=== PATIENT | female | born 1955 | race Caucasian/White ===

== ENCOUNTER → 2016-12-31 | Outpatient (CLI) | payer OTHER ==
[~2016-12-31] MED LIST: ASPI-461 PO; ATV/1 PO; BUDESUS; CALCIUM 100 MG PO; IBUP-1450 PO; LISI-461 PO; LORA10TA51 PO; MISCCAP80 PO; MULTTAB58 PO; PIRB200A INH; RIZA10TA18 PO; SNG10 PO; TRIA0.1C20 TOP
--- NOTE | 2016-12-31 14:35 | MAMMOGRAPHY REPORT ---
BILATERAL DIGITAL SCREENING MAMMOGRAM WITH CAD: 12/31/2016 TECHNIQUE: Current study was also evaluated with a Computer Aided Detection (CAD) system. Bilateral CC and MLO views were obtained. COMPARISON: Comparison is made to exams dated: 12/31/2015 mammogram, 12/25/2014 mammogram, 12/21/2013 m ammogram, 12/15/2012 mammogram, 06/30/2012 mammogram, and 12/18/2011 mammogram - [facility]. BREAST COMPOSITION: There are scattered areas of fibroglandular density in both breasts. FINDINGS: No suspicious masses, calcifications, or areas of architectural distortion are noted in ei ther breast. There has been no significant interval change compared to prior exams. Bilateral nodula r asymmetries and bilateral benign-appearing calcifications are not significantly changed. A biopsy marker clip is again noted in the left medial breast. IMPRESSION: ACR BI-RADS CATEGORY 2: BENIGN There is no mammographic evidence of malignancy. A 1 year screening mammogram is recommended. The pa tient will receive written notification of the results. Approximately 10% of breast cancers are not detected with mammography. A negative mammographic report should not delay biopsy if a clinically suggestive mass is present. Maxine Buchanan M.D. /:12/31/2016 10:26:57 Can Coverer: Siria VAZQUEZ([facility])([place])(MARILIA), [facility] letter sent: Normal 1/2 BI-RADS Code: ACR BI-RADS Category 2: Benign
== END | disposition home or self-care (01) ==
LOC: C.MAMM 09:10
PROVIDERS: ATTEND Family Medicine
DX: Z12.31 Encounter for screening mammogram for malignant neoplasm of breast (principal)

== ENCOUNTER → 2017-10-27 | Outpatient (CLI) | payer OTHER ==
--- NOTE | 2017-10-27 17:25 | DIAGNOSTIC IMAGING REPORT ---
R TIBIA/FIBULA 2 VIEWS ROUTINE CLINICAL HISTORY: Right lower leg pain. COMPARISON: None FINDINGS: No fracture or osseous lesion is identified within the right tibia or fibula. There is no radiographic evidence for a stress fracture. Talar dome is intact. There is mild plantar and posterior calcaneal spurring. IMPRESSION: No osseous abnormality of the right tibia or fibula. Electronically signed by: Marty Demarco M.D. 10/27/2017 5:24 PM Dictated Date/Time: 10/27/2017 5:23 PM
== END | disposition home or self-care (01) ==
LOC: C.RAD 17:03
PROVIDERS: ATTEND Internal Medicine
DX: M25.561 Pain in right knee (principal)

== ENCOUNTER → 2018-01-25 | Outpatient (CLI) | payer OTHER ==
--- NOTE | 2018-01-25 16:19 | MAMMOGRAPHY REPORT ---
BILATERAL DIGITAL SCREENING MAMMOGRAM TOMOSYNTHESIS WITH CAD: 01/25/2018 CLINICAL HISTORY: Routine screening. Patient has no complaints. TECHNIQUE: The study was acquired using full field digital technology and interpreted from soft copy. Breast tomosynthesis in addition to standard 2D mammography was performed. Current study was also ev aluated with a Computer Aided Detection (CAD) system. COMPARISON: Comparison is made to exams dated: 12/31/2016 mammogram, 12/31/2015 mammogram, 12/25/2014 m ammogram, 12/21/2013 mammogram, 12/15/2012 mammogram, and 06/30/2012 mammogram - [facility]. BREAST COMPOSITION: There are scattered areas of fibroglandular density in both breasts. FINDINGS: There is a 6 mm focal asymmetry in the 12:00 middle one third of the right breast, for whic h additional spot compression tomosynthesis views and possible ultrasound are recommended. A possibl e grouping of faint microcalcifications in the lateral, middle one third of the left breast best seen on the CC view, warranting additional spot magnification views. There are stable postbiopsy changes in the lower inner left breast, with boaz-shaped biopsy marker cli p in place. A few other scattered benign-appearing calcifications. No other suspicious mass, archite ctural distortion or cluster of microcalcifications is seen. IMPRESSION: ACR BI-RADS CATEGORY 0: INCOMPLETE EVALUATION: NEED ADDITIONAL IMAGING EVALUATION The 6 mm focal asymmetry in the 12:00 right breast and possible faint grouped calcifications in the l ateral left breast need additional evaluation. The patient will be called to schedule an appointment. Some breast cancers are not detected with mammography. A negative mammographic report should not jeff y biopsy if a clinically suggestive mass is present. Martha Calvert M.D. ay/:01/25/2018 08:54:05 Brine Well Operator: RT Natalio(R)(M)(BD), [facility] letter sent: Addl Imaging 0 BI-RADS Code: ACR BI-RADS Category 0: Incomplete Evaluation: Need Additional Imaging Evaluation
== END | disposition home or self-care (01) ==
LOC: C.MAMM 08:21
PROVIDERS: ATTEND Internal Medicine
DX: Z12.31 Encounter for screening mammogram for malignant neoplasm of breast (principal); N64.89 Other specified disorders of breast

== ENCOUNTER → 2018-02-04 | Outpatient (CLI) | payer OTHER ==
--- NOTE | 2018-02-04 14:36 | MAMMOGRAPHY REPORT ---
BILATERAL DIGITAL DIAGNOSTIC MAMMOGRAM TOMOSYNTHESIS AND TARGETED RIGHT ULTRASOUND: 02/04/2018 CLINICAL HISTORY: Callback from screening mammogram for right breast mass and left breast calcificati ons. Right Asymmetry Left calcifications. TECHNIQUE: The study was acquired using full field digital technology and interpreted from soft copy. Breast tomosynthesis in addition to standard 2D mammography was performed. Spot compression right C C and MLO 2D and tomosynthesis images and spot magnification left CC and MLO views were obtained. COMPARISON: Comparison is made to exams dated: 01/25/2018 mammogram, 12/31/2016 mammogram, 12/31/2015 m ammogram, 12/25/2014 mammogram, 12/21/2013 mammogram, and 12/15/2012 mammogram - [facility]. BREAST COMPOSITION: There are scattered areas of fibroglandular density in both breasts. FINDINGS: Spot compression views of the right breast demonstrate a persistent oval 7 mm mass which has circumsc ribed margins on the tomosynthesis images in the right 12:00 breast. Spot magnification views of the left breast demonstrate loosely grouped faint punctate benign appearing calcifications within the la teral left breast are not significantly changed compared to spot magnification views from the 2012 ex am when accounting for differences in mammographic technique; given the long-term stability and benig n morphology, the calcifications are considered benign. Targeted ultrasound was performed of the right 12:00 breast in the region of the mammographic mass. In the right 12:00 breast, 2 cm from the nipple, there is a circumscribed anechoic mass with posterio r acoustic enhancement which measures 6 x 6 x 6 mm. This corresponds with the mammographic mass and is consistent with a benign simple cyst. IMPRESSION: ACR BI-RADS CATEGORY 2: BENIGN, ULTRASOUND ACR BI-RADS CATEGORY 2: BENIGN 1. Benign 6 mm cyst in the right 12:00 breast on ultrasound, which corresponds with the mammographic mass. 2. Loosely grouped punctate benign-appearing calcifications in the left lateral breast are stable da ting back to at least the 2012 exam and considered benign given the morphology and stability. There is no mammographic or sonographic evidence of malignancy. A 1 year screening mammogram is recom mended.(02/05/2019) The patient has been verbally notified of the results. Some breast cancers are not detected with mammography. A negative mammographic report should not jeff y biopsy if a clinically suggestive mass is present. Maxine Buchanan M.D. ah/:02/04/2018 09:33:09 Crisis Therapist: RT Malinda([facility])(M), [facility]; Maxine Buchanan MD, [facility] letter sent: Normal 07/06 OVERALL STUDY BIRADS: 2 Benign
== END | disposition home or self-care (01) ==
LOC: C.MAMM 09:02
PROVIDERS: ATTEND Family Medicine
DX: N64.89 Other specified disorders of breast (principal); N60.01 Solitary cyst of right breast; R92.1 Mammographic calcification found on diagnostic imaging of breast

== ENCOUNTER 2021-04-30 21:17 | Inpatient (IN) ==
[2021-04-30 22:32] LABS: Hemoglobin 7.9 g/dL (12.0-16.0); Mean Corpuscular Hemoglobin 31.3 pg (25-34); Mean Corpuscular Hgb Conc 31.6 g/dL (32-36); Mean Corpuscular Volume 99.2 fL (80-100); Nucleated RBC # (auto) 0.06 K/uL (0-0); Nucleated RBC % (auto) 1.4 %; RDW Coefficient of Variation 21.7 % (11.5-14.5); RDW Standard Deviation 77.3 fL (36.4-46.3); Red Blood Count 2.52 M/uL (4.2-5.4); White Blood Count 4.21 K/uL (4.8-10.8)
[2021-04-30 22:34] LABS: Platelet Count 61 K/uL (130-400)
[2021-04-30 22:44] LABS: INR 1.2 (0.9-1.1); Partial Thromboplastin Ratio 0.9; Partial Thromboplastin Time 22.5 Seconds (21.0-31.0); Prothrombin Time 11.8 Seconds (9.0-12.0)
[2021-04-30 22:50] LABS: Calcium 9.6 mg/dl (8.5-10.1); Creatinine Clr Calc Pharmacy 48.3 ml/min; Est GFR (African American) 59.5 ml/min; Est GFR (Non-African American) 51.3 ml/min; Potassium 3.7 mmol/L (3.5-5.1)
[2021-04-30 22:53] LABS: Albumin Globulin Ratio 0.4 (0.9-2); Globulin 6.8 gm/dl (2.5-4.0); Total Protein 9.8 gm/dl (6.4-8.2)
[2021-04-30 22:57] LABS: Anisocytosis Present; Basophils # (auto) 0.01 K/uL (0-0.2); Basophils % (auto) 0.2 %; Eosinophils # (auto) 0.08 K/uL (0-0.5); Eosinophils % (auto) 1.9 %; Immature Granulocytes # (auto) 0.08 K/uL (0.00-0.02); Immature Granulocytes % (auto) 1.9 %; Lymphocytes # (auto) 0.14 K/uL (1.2-3.4); Lymphocytes % (auto) 3.3 %; Monocytes # (auto) 0.41 K/uL (0.11-0.59); Monocytes % (auto) 9.7 %; Neutrophils # (auto) 3.49 K/uL (1.4-6.5); Rouleaux 1+
[2021-04-30] MEDS ORDERED: SODIUM CHLORIDE 0.9% 1000ML 1,000 ML IV ONE (23:12)
--- NOTE | 2021-04-30 23:20 | Emergency Department Note ---
Impression & Plan Febrile leukopenia Admission ED Provider Note HPI: The patient is a 65-year-old female with history of Waldenstrom macroglobulinemia, currently on chemotherapy, presents the emergency department the chief complaint of a transient fever today. Patient states that she felt feverish earlier today and took her temperature at home and it was 102 Fahrenheit, she states she had some mild nausea but denies any other symptoms aside from generalized weakness She states she did receive her COVID-19 vaccinations and her booster earlier this year. She states her last session of chemotherapy was 1 week ago. On arrival to the ED the patient is hemodynamically stable, she has borderline temperature at 37.6 C, she is saturating well on room air and is otherwise in no acute distress on my initial evaluation. ROS: -General: Fever/generalized weakness *10 point review systems was conducted and is otherwise negative unless stated above *Outpatient medications and allergy history reviewed PE: General: Alert, NAD HEENT: Normocephalic, atraumatic, trachea midline Eyes: Extraocular eye movement is intact, no scleral erythema Pulmonary: Clear to auscultation bilaterally, no wheezing Cardio: Regular rate and rhythm GI: Abdomen is soft, nontender : No suprapubic tenderness MSK: No evidence of trauma or malformation of the extremities, no edema Skin: No evidence of rash Neuro: Alert, no focal deficits Psychiatric: Cooperative teletypesetter monitor: Order placed, patient is in sinus tachycardia on the monitor EKG: Time: 2205 Rhythm: Sinus tachycardia Rate: 118 Intervals: Within normal limits ST changes: No ST elevation Medical Decision Making: Patient presents the emergency department with fever measured at home to 100.2, she is immunocompromise that she is on chemotherapy for history of WaldenStrom macroglobulinemia. On arrival here to the ED the patient is hemodynamically stable, no acute distress. Blood cultures were drawn in the ED, lactic acid is normal, patient was given 1 L of IV fluid and none further secondary to hemodynamic stability. Lab work shows evidence of slight leukopenia of 4.2, anemia with hemoglobin of 7.9, platelet count of 61, consistent with the patient's history of macroglobulinemia. She denies any recent gross blood loss or melena. Given the patient's history, decision was made to start the patient on broad- spectrum antibiotics as she is leukopenic and reported a fever earlier today. Of note, her COVID-19 testing is negative. Chest x-ray shows no obvious pneumonia but possible developing infiltrate in the left lower lobe per my interpretation. Patient was covered with broad-spectrum antibiotics vancomycin and cefepime. Case was discussed with the on-call hospitalist through [facility] group and patient was admitted in stable condition. * Diagnosis: Fever and leukopenia in an immunocompromise patient * Disposition: Admission Anthony Kaur DO Emergency Medicine Past Med/Surg History Medical History (Updated 05/01/21 @ 04:55 by Anthony Kaur DO) Anemia Hx Anxiety Arthritis Asthma Diverticulitis s/p abx (?09/2020) Elevated BP without diagnosis of hypertension Gout History of genital warts Migraine Hx Obesity Pain in joint involving right lower leg Rash Surgical History H/O oral surgery History of anesthesia reaction Burning sensation across chest with oral surgery (Dr. Palacios's office/2018), no similar issues with subsequent surgeries/procedures History of bone marrow biopsy 14 years ago "inconclusive"/follows with Dr. Rosado (Oncology/S) History of colonoscopy Multiple History of esophagogastroduodenoscopy (EGD) S/P cholecystectomy S/P hernia repair S/P knee surgery Left meniscus repair S/P lumpectomy of breast Right (benign) S/P sinus surgery S/P tubal ligation Family History Father Myocardial infarction Grandmother Breast cancer Family/Other Colorectal cancer Brother Family history of diabetes mellitus Sister Family history of diabetes mellitus Denies family history of Ovarian cancer Prostate cancer Social History Smoking Status: Never smoker Second Hand Exposure: No; Hx Alcohol Use: No Hx Substance Use: No Preferred Language: Gambian Communication Ability: Effective Visual Impairment: No Limitations Hearing Ability: Normal Media Assistant Required: No Beliefs That Will Affect Care: None marital status: Current Living Situation: Spouse current occupational status: retired current occupation: Homemaker Feels Safe at Home: Yes Dental Care, Regularly: Yes Physical Activity Frequency: 3-4 Times per Week Physical Activity Frequency Comment: exercise class at the [employer] Seatbelt Use: always Sunscreen Use: Yes (sometimes) Assistive Devices: Glasses Allergies Allergies Allergy/AdvReac Type Severity Reaction Status Date / Time clindamycin Allergy Severe Rash Verified 04/30/21 23:32 cobalt chloride Allergy Unknown Unknown Verified 04/30/21 23:32 epoxy resin Allergy Unknown Allergy Verified 04/30/21 23:32 testing Gold Salts Allergy Unknown Itching Verified 04/30/21 23:32 levofloxacin Allergy Unknown Unknown Verified 04/30/21 23:32 Sulfa (Sulfonamide Allergy Unknown Rash Verified 04/30/21 23:32 Antibiotics) Thiuram Analogues Allergy Unknown Allergy Verified 04/30/21 23:32 testing amoxicillin AdvReac Unknown Diarrhea Verified 04/30/21 23:32 VITAMIN B12 Allergy Unknown Allergy Uncoded 04/30/21 23:32 testing Albuterol AERS AdvReac Unknown Headache Uncoded 04/30/21 23:32 Home Meds Home Medications Medication Instructions Recorded Confirmed aspirin 81 mg tablet,delayed 81 mg PO QAM 12/16/18 04/30/21 release lactobacillus combination no.4 3 3,000 mmu cells PO QPM 12/16/18 04/30/21 billion cell capsule (Probiotic) Restore Eye Oint Otc 1 dose OPHTHALMIC (EYE) HS 10/01/20 04/30/21 calcium carbonate-vitamin D3 600 1 cap PO BID 10/01/20 04/30/21 mg calcium-200 unit capsule (Calcium 600 + D(3)) ibuprofen 200 mg tablet 400 mg PO Q6H PRN 10/01/20 04/30/21 loratadine 10 mg tablet (Claritin) 10 mg PO QAM 10/01/20 04/30/21 cholecalciferol (vitamin D3) 50 50 mcg PO DAILY 03/31/21 04/30/21 mcg (2,000 unit) capsule allopurinol 300 mg tablet 300 mg PO DAILY 04/30/21 04/30/21 azithromycin 250 mg tablet 250 mg PO .DAILY/UD 04/30/21 04/30/21 methylprednisolone 4 mg tablet 4 mg PO .DAILY/UD 04/30/21 04/30/21 ondansetron HCl 8 mg tablet 8 mg PO TID PRN 04/30/21 04/30/21 sennosides 8.6 mg capsule (senna) 8.6 mg PO DAILY PRN 04/30/21 04/30/21 Previous Rx's Medication Instructions Recorded olopatadine 0.6 % nasal spray 1 spray INTRANASAL BID #30.5 g 11/05/20 (Patanase) montelukast 10 mg tablet 10 mg PO HS #90 tab 01/27/21 levalbuterol tartrate 45 2 puff INHALATION Q6H PRN #15 g 04/01/21 mcg/actuation aerosol inhaler lorazepam 0.5 mg tablet 0.5 mg PO DAILY PRN #30 tab 04/15/21 Results & Data (ED) Vital Signs Vital Signs - 24 hr 04/30/21 21:20 04/30/21 23:38 05/01/21 00:00 Temperature 37.6 C H Temperature Source Temporal Artery Scan Pulse Rate 132 H 102 H 95 H Pulse Rate from SpO2 Sensor 101 H 94 H Respiratory Rate 20 21 20 Respiratory Effort / Characteristics Non-Labored Spontaneous Respiratory Depth Normal Blood Pressure 132/73 154/70 H 141/75 H Blood Pressure Mean 92 98 97 Pulse Oximetry 94 94 94 Oxygen Delivery Method Room Air Sepsis New/Unexplained Change in Mental Status N/A Sepsis Action Taken by Nursing No Action Required 05/01/21 01:00 Temperature Temperature Source Pulse Rate 94 H Pulse Rate from SpO2 Sensor 94 H Respiratory Rate 20 Respiratory Effort / Characteristics Respiratory Depth Blood Pressure 124/65 Blood Pressure Mean 84 Pulse Oximetry 93 Oxygen Delivery Method Sepsis New/Unexplained Change in Mental Status Sepsis Action Taken by Nursing Laboratory Data Result diagrams: 04/30/21 22:23 04/30/21 22:23 Lab Results 04/30/21 04/30/21 04/30/21 Range/Units 22:23 22:23 22:23 WBC 4.21 L (4.8-10.8) K/uL RBC 2.52 L (4.2-5.4) M/uL Hgb 7.9 L (12.0-16.0) g/dL Hct 25.0 L (37-47) % MCV 99.2 (80-100) fL MCH 31.3 (25-34) pg MCHC 31.6 L (32-36) g/dL RDW Std Deviation 77.3 H (36.4-46.3) fL RDW Coeff of Nancy 21.7 H (11.5-14.5) % Plt Count 61 L (130-400) K/uL MPV 9.0 (7.4-10.4) fL Immature Gran % (Auto) 1.9 % Neut % (Auto) 83.0 % Lymph % (Auto) 3.3 % Norton % (Auto) 9.7 % Eos % (Auto) 1.9 % Baso % (Auto) 0.2 % Neut # (Auto) 3.49 (1.4-6.5) K/uL Lymph # (Auto) 0.14 L (1.2-3.4) K/uL Norton # (Auto) 0.41 (0.11-0.59) K/uL Eos # (Auto) 0.08 (0-0.5) K/uL Baso # (Auto) 0.01 (0-0.2) K/uL Immature Gran # (Auto) 0.08 H (0.00-0.02) K/uL Absolute Nucleated RBC 0.06 H (0-0) K/uL Nucleated RBC % (auto) 1.4 % Anisocytosis Present Rouleaux 1+ PT 11.8 (9.0-12.0) Seconds INR 1.2 H (0.9-1.1) APTT 22.5 (21.0-31.0) Seconds PTT Ratio 0.9 Sodium 134 L (136-145) mmol/L Potassium 3.7 (3.5-5.1) mmol/L Chloride 101 (98-107) mmol/L Carbon Dioxide 25 (21-32) mmol/L Anion Gap 8.0 (3-11) BUN 22 H (7-18) mg/dl Creatinine 1.11 (0.6-1.2) mg/dl Est Cr Clr Drug Dosing 48.3 ml/min Est GFR ( Amer) 59.5 ml/min Est GFR (Non-Af Amer) 51.3 ml/min BUN/Creatinine Ratio 20.0 (10-20) Glucose 140 H (70-99) mg/dl Lactate (0.4-2.0) mmol/L Calcium 9.6 (8.5-10.1) mg/dl Total Bilirubin 1.0 (0.2-1) mg/dl AST 7 L (15-37) U/L ALT 13 (12-78) U/L Alkaline Phosphatase 67 (45-117) U/L Total Protein 9.8 H (6.4-8.2) gm/dl Albumin 3.0 L (3.4-5.0) gm/dl Globulin 6.8 H (2.5-4.0) gm/dl Albumin/Globulin Ratio 0.4 L (0.9-2) Urine Color Urine Appearance (Clear) Urine pH (4.5-7.5) Ur Specific [place] (1.000-1.030) Urine Protein (Negative) Urine Glucose (UA) (Negative) Urine Ketones (Negative) Urine Blood (Negative) Urine Nitrite (Negative) Urine Bilirubin (Negative) Urine Urobilinogen (Negative) Ur Leukocyte Esterase (Negative) COVID-19 Eval Order SARS-CoV-2 (PCR) (Negative) 04/30/21 04/30/21 04/30/21 Range/Units 23:24 23:24 23:39 WBC (4.8-10.8) K/uL RBC (4.2-5.4) M/uL Hgb (12.0-16.0) g/dL Hct (37-47) % MCV (80-100) fL MCH (25-34) pg MCHC (32-36) g/dL RDW Std Deviation (36.4-46.3) fL RDW Coeff of Nancy (11.5-14.5) % Plt Count (130-400) K/uL MPV (7.4-10.4) fL Immature Gran % (Auto) % Neut % (Auto) % Lymph % (Auto) % Norton % (Auto) % Eos % (Auto) % Baso % (Auto) % Neut # (Auto) (1.4-6.5) K/uL Lymph # (Auto) (1.2-3.4) K/uL Norton # (Auto) (0.11-0.59) K/uL Eos # (Auto) (0-0.5) K/uL Baso # (Auto) (0-0.2) K/uL Immature Gran # (Auto) (0.00-0.02) K/uL Absolute Nucleated RBC (0-0) K/uL Nucleated RBC % (auto) % Anisocytosis Rouleaux PT (9.0-12.0) Seconds INR (0.9-1.1) APTT (21.0-31.0) Seconds PTT Ratio Sodium (136-145) mmol/L Potassium (3.5-5.1) mmol/L Chloride (98-107) mmol/L Carbon Dioxide (21-32) mmol/L Anion Gap (3-11) BUN (7-18) mg/dl Creatinine (0.6-1.2) mg/dl Est Cr Clr Drug Dosing ml/min Est GFR ( Amer) ml/min Est GFR (Non-Af Amer) ml/min BUN/Creatinine Ratio (10-20) Glucose (70-99) mg/dl Lactate 1.6 (0.4-2.0) mmol/L Calcium (8.5-10.1) mg/dl Total Bilirubin (0.2-1) mg/dl AST (15-37) U/L ALT (12-78) U/L Alkaline Phosphatase (45-117) U/L Total Protein (6.4-8.2) gm/dl Albumin (3.4-5.0) gm/dl Globulin (2.5-4.0) gm/dl Albumin/Globulin Ratio (0.9-2) Urine Color Urine Appearance (Clear) Urine pH (4.5-7.5) Ur Specific [place] (1.000-1.030) Urine Protein (Negative) Urine Glucose (UA) (Negative) Urine Ketones (Negative) Urine Blood (Negative) Urine Nitrite (Negative) Urine Bilirubin (Negative) Urine Urobilinogen (Negative) Ur Leukocyte Esterase (Negative) COVID-19 Eval Order Covid19 at [facility] SARS-CoV-2 (PCR) NEGATIVE (Negative) 05/01/21 Range/Units 00:45 WBC (4.8-10.8) K/uL RBC (4.2-5.4) M/uL Hgb (12.0-16.0) g/dL Hct (37-47) % MCV (80-100) fL MCH (25-34) pg MCHC (32-36) g/dL RDW Std Deviation (36.4-46.3) fL RDW Coeff of Nancy (11.5-14.5) % Plt Count (130-400) K/uL MPV (7.4-10.4) fL Immature Gran % (Auto) % Neut % (Auto) % Lymph % (Auto) % Norton % (Auto) % Eos % (Auto) % Baso % (Auto) % Neut # (Auto) (1.4-6.5) K/uL Lymph # (Auto) (1.2-3.4) K/uL Norton # (Auto) (0.11-0.59) K/uL Eos # (Auto) (0-0.5) K/uL Baso # (Auto) (0-0.2) K/uL Immature Gran # (Auto) (0.00-0.02) K/uL Absolute Nucleated RBC (0-0) K/uL Nucleated RBC % (auto) % Anisocytosis Rouleaux PT (9.0-12.0) Seconds INR (0.9-1.1) APTT (21.0-31.0) Seconds PTT Ratio Sodium (136-145) mmol/L Potassium (3.5-5.1) mmol/L Chloride (98-107) mmol/L Carbon Dioxide (21-32) mmol/L Anion Gap (3-11) BUN (7-18) mg/dl Creatinine (0.6-1.2) mg/dl Est Cr Clr Drug Dosing ml/min Est GFR ( Amer) ml/min Est GFR (Non-Af Amer) ml/min BUN/Creatinine Ratio (10-20) Glucose (70-99) mg/dl Lactate (0.4-2.0) mmol/L Calcium (8.5-10.1) mg/dl Total Bilirubin (0.2-1) mg/dl AST (15-37) U/L ALT (12-78) U/L Alkaline Phosphatase (45-117) U/L Total Protein (6.4-8.2) gm/dl Albumin (3.4-5.0) gm/dl Globulin (2.5-4.0) gm/dl Albumin/Globulin Ratio (0.9-2) Urine Color Yellow Urine Appearance Clear (Clear) Urine pH 6.5 (4.5-7.5) Ur Specific [place] 1.009 (1.000-1.030) Urine Protein Negative (Negative) Urine Glucose (UA) Negative (Negative) Urine Ketones Negative (Negative) Urine Blood Negative (Negative) Urine Nitrite Negative (Negative) Urine Bilirubin Negative (Negative) Urine Urobilinogen Negative (Negative) Ur Leukocyte Esterase Negative (Negative) COVID-19 Eval Order SARS-CoV-2 (PCR) (Negative) Administered Medications Vancomycin HCl 1,250 mg/ (Sodium Chloride) 525 mls @ 200 mls/hr IV UD VIK Stop: 05/03/21 00:29 Last Infusion: 05/01/21 04:29 Dose: 0 mls/hr Documented by: [id number] Admin: 05/01/21 00:47 Dose: 200 mls/hr Documented by: [id number] Discontinued Medications Sodium Chloride (Nss 1000ml) 1,000 mls @ 999 mls/hr IV .[id number] ONE Stop: 05/01/21 00:12 Last Infusion: 05/01/21 00:33 Dose: 0 mls/hr Documented by: [id number] Admin: 04/30/21 23:22 Dose: 999 mls/hr Documented by: [id number] Cefepime HCl 1,000 mg/ Syringe 11.3 mls @ 5.5 mls/min IV NOW STA; Protocol Stop: 05/01/21 00:31 Last Admin: 05/01/21 00:47 Dose: 5.5 mls/min Documented by: [id number] Discharge Plan Visit Data Chief Complaint: Fever Stated Complaint: FEVER 102.7 RECEIVED CHEMO LAST WEEK ED Provider: Anthony Kaur Discharge Problem: Febrile leukopenia
[2021-05-01] MEDS ORDERED: VANCOMYCIN CONSULT ACTIVE PRN ×2 (00:29→04:31)
[2021-05-01] MEDS ORDERED: CEFEPIME 1,000 MG in SYRINGE 0 ML IV STA (00:29)
[2021-05-01] MEDS ORDERED: VANCOMYCIN HCL 1,250 MG in SODIUM CHLORIDE 0.9% 500 ML IV SCH (00:30)
[2021-05-01 01:07] LABS: Appearance Urine Clear (Clear); Bilirubin Urine Negative (Negative); Blood Urine Negative (Negative); Color Urine Yellow; Glucose Urine UA Negative (Negative); Ketones Urine Negative (Negative); Leukocyte Esterase Urine Negative (Negative); Nitrite Urine Negative (Negative); Protein Urine Negative (Negative); Specific Gravity Urine 1.009 (1.000-1.030); Urobilinogen Urine Negative (Negative); pH Urine 6.5 (4.5-7.5)
[2021-05-01] MEDS ORDERED: ALBUT/IPRATROP 3MG/0.5MG NEB 3 ML VIAL NEB PRN (01:46)
--- NOTE | 2021-05-01 01:46 | History & Physical Report ---
Date of Service May 01, 2021 Assessment & Plan (1) Fever: Plan: Fever while on chemotherapy- Empiric antibiotics of vancomycin IV and aztreonam IV Follow urine culture and sensitivity Follow blood culture and sensitivity Follow serial CBC with differential and monitor for possible development of neutropenia (2) Chemotherapy adverse reaction: Plan: See above (3) Waldenstrom macroglobulinemia: Plan: Undergoing chemotherapy (4) Gout: Plan: Continue allopurinol (5) Anxiety disorder: Plan: Continue Ativan (6) Asthma: Plan: Xopenex on short supply Duonebs every 2 hours when necessary. History of Present Illness Chief Complaint: The patient presents to the emergency department due to development of a temperature of 102.7 degrees when measured at home earlier in the afternoon today Primary Care Provider: Vladimir Sanders MD The patient is a 65-year-old female having completed her first treatment of chemotherapy 1 week ago for Dagmar Rachel macroglobulinemia, reactive airway disease, hypertension, herniated cervical disc without myelopathy, fatty liver, anxiety, allergic rhinitis, B12 deficiency, vitamin D deficiency, anxiety, second endometrium and diverticulosis. Patient presents with symptoms as noted above. She has no specific symptoms otherwise as far as respiratory, GI, urinary, skin or other. Allergies Allergy/AdvReac Type Severity Reaction Status Date / Time clindamycin Allergy Severe Rash Verified 04/30/21 23:32 cobalt chloride Allergy Unknown Unknown Verified 04/30/21 23:32 epoxy resin Allergy Unknown Allergy Verified 04/30/21 23:32 testing Gold Salts Allergy Unknown Itching Verified 04/30/21 23:32 levofloxacin Allergy Unknown Unknown Verified 04/30/21 23:32 Sulfa (Sulfonamide Allergy Unknown Rash Verified 04/30/21 23:32 Antibiotics) Thiuram Analogues Allergy Unknown Allergy Verified 04/30/21 23:32 testing amoxicillin AdvReac Unknown Diarrhea Verified 04/30/21 23:32 VITAMIN B12 Allergy Unknown Allergy Uncoded 04/30/21 23:32 testing Albuterol AERS AdvReac Unknown Headache Uncoded 04/30/21 23:32 Home Medications Medication Instructions Recorded Confirmed Type aspirin 81 mg tablet,delayed 81 mg PO QAM 12/16/18 04/30/21 History release lactobacillus combination no.4 3 3,000 mmu cells PO QPM 12/16/18 04/30/21 History billion cell capsule (Probiotic) Restore Eye Oint Otc 1 dose OPHTHALMIC (EYE) HS 10/01/20 04/30/21 History calcium carbonate-vitamin D3 600 1 cap PO BID 10/01/20 04/30/21 History mg calcium-200 unit capsule (Calcium 600 + D(3)) ibuprofen 200 mg tablet 400 mg PO Q6H PRN 10/01/20 04/30/21 History loratadine 10 mg tablet (Claritin) 10 mg PO QAM 10/01/20 04/30/21 History olopatadine 0.6 % nasal spray 1 spray INTRANASAL BID #30.5 g 11/05/20 04/30/21 Rx (Patanase) montelukast 10 mg tablet 10 mg PO HS #90 tab 01/27/21 04/30/21 Rx cholecalciferol (vitamin D3) 50 50 mcg PO DAILY 03/31/21 04/30/21 History mcg (2,000 unit) capsule levalbuterol tartrate 45 2 puff INHALATION Q6H PRN #15 g 04/01/21 04/30/21 Rx mcg/actuation aerosol inhaler lorazepam 0.5 mg tablet 0.5 mg PO DAILY PRN #30 tab 04/15/21 04/30/21 Rx allopurinol 300 mg tablet 300 mg PO DAILY 04/30/21 04/30/21 History azithromycin 250 mg tablet 250 mg PO .DAILY/UD 04/30/21 04/30/21 History methylprednisolone 4 mg tablet 4 mg PO .DAILY/UD 04/30/21 04/30/21 History ondansetron HCl 8 mg tablet 8 mg PO TID PRN 04/30/21 04/30/21 History sennosides 8.6 mg capsule (senna) 8.6 mg PO DAILY PRN 04/30/21 04/30/21 History Past Med/Surg History Medical History (Updated 05/01/21 @ 01:44 by Mello Qureshi MD) Anemia Hx Anxiety Arthritis Asthma Diverticulitis s/p abx (?09/2020) Elevated BP without diagnosis of hypertension Gout History of genital warts Migraine Hx Obesity Pain in joint involving right lower leg Rash Surgical History H/O oral surgery History of anesthesia reaction Burning sensation across chest with oral surgery (Dr. Palacios's office/2018), no similar issues with subsequent surgeries/procedures History of bone marrow biopsy 14 years ago "inconclusive"/follows with Dr. Rosado (Oncology/[facility]) History of colonoscopy Multiple History of esophagogastroduodenoscopy (EGD) S/P cholecystectomy S/P hernia repair S/P knee surgery Left meniscus repair S/P lumpectomy of breast Right (benign) S/P sinus surgery S/P tubal ligation Family History Father Myocardial infarction Grandmother Breast cancer Family/Other Colorectal cancer Brother Family history of diabetes mellitus Sister Family history of diabetes mellitus Denies family history of Ovarian cancer Prostate cancer Social History Smoking Status: Never smoker Second Hand Exposure: No; Hx Alcohol Use: No Hx Substance Use: No Preferred Language: Latvian Communication Ability: Effective Visual Impairment: No Limitations Hearing Ability: Normal [employer] Exp[employer] 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 Beliefs That Will Affect Care: None marital status: Current Living Situation: Spouse current occupational status: retired current occupation: Homemaker Feels Safe at Home: Yes Dental Care, Regularly: Yes Physical Activity Frequency: 3-4 Times per Week Physical Activity Frequency Comment: exercise class at the [facility] Seatbelt Use: always Sunscreen Use: Yes (sometimes) Assistive Devices: Glasses Review of Systems Review of Systems: The patient denies chest pain, palpitations, shortness of breath, dyspnea on exertion, cough, lower extremity swelling, sore throat, fevers, chills, sweats, weight change, fatigue, nausea, vomiting, diarrhea , constipation, abdominal pain, pelvic pain, blood in urine or stool, dysuria, urinary frequency or urgency, lightheadedness, dizziness, memory loss, loss of consciousness, rash, abnormal bruising or bleeding, imbalance, focal weakness, numbness or tingling in arms or legs, generalized arthralgias or myalgias, back or neck pain, or night sweats. The review of systems is otherwise negative other than for that already noted above, and at least 10 systems have been reviewed. Physical Exam Physical Exam: The patient is awake, alert and oriented 3, well developed and well nourished, normocephalic and atraumatic, lying in bed and in no acute di stress. HEENT--PERRL, EOMI, mucous membranes and oropharynx normal. Neck--supple. No JVD. No bruits. Thyroid normal, trachea midline, no adenopathy. Heart--normal S1 and S2. No murmurs, rubs or gallops. Lungs--clear bilaterally, no respiratory distress, no accessory muscle use. Abdomen--normal bowel sounds and soft. Nontender. Nondistended. Obese Extremities--no cyanosis or clubbing. No edema. Dermatologic--number of healed surface lesions bilateral lower extremities Neurologic--cranial nerves II through XII grossly intact. Rheumatologic--normal range of motion. Psychiatric--normal affect. Results & Data Results & Data ([facility]) Vital Signs (Past 12 Hours) Vital Signs Temp Pulse Resp BP Pulse Ox 05/01/21 01:00 94 H 20 124/65 93 05/01/21 00:00 95 H 20 141/75 H 94 04/30/21 23:38 102 H 21 154/70 H 94 04/30/21 21:20 99.7 F H 132 H 20 132/73 94 Laboratory Results Laboratory Results WBC 4.21 K/uL (4.8-10.8) L 04/30/21 22: RBC 2.52 M/uL (4.2-5.4) L 04/30/21 22: Hgb 7.9 g/dL (12.0-16.0) L 04/30/21 22: Hct 25.0 % (37-47) L 04/30/21 22: MCV 99.2 fL (80-100) 04/30/21 22: MCH 31.3 pg (25-34) 04/30/21 22: MCHC 31.6 g/dL (32-36) L 04/30/21 22: RDW Std Deviation 77.3 fL (36.4-46.3) H 04/30/21 22: RDW Coeff of Nancy 21.7 % (11.5-14.5) H 04/30/21 22: Plt Count 61 K/uL (130-400) L 04/30/21 22: MPV 9.0 fL (7.4-10.4) 04/30/21 22: Immature Gran % (Auto) 1.9 % 04/30/21 22: Neut % (Auto) 83.0 % 04/30/21 22:23 Lymph % (Auto) 3.3 % 04/30/21 22:23 Graves % (Auto) 9.7 % 04/30/21 22: Eos % (Auto) 1.9 % 04/30/21 22: Baso % (Auto) 0.2 % 04/30/21 22: Neut # (Auto) 3.49 K/uL (1.4-6.5) 04/30/21 22: Lymph # (Auto) 0.14 K/uL (1.2-3.4) L 04/30/21 22: Graves # (Auto) 0.41 K/uL (0.11-0.59) 04/30/21 22: Eos # (Auto) 0.08 K/uL (0-0.5) 04/30/21 22: Baso # (Auto) 0.01 K/uL (0-0.2) 04/30/21 22: Immature Gran # (Auto) 0.08 K/uL (0.00-0.02) H 04/30/21 22: Absolute Nucleated RBC 0.06 K/uL (0-0) H 04/30/21 22: Nucleated RBC % (auto) 1.4 % 04/30/21 22: Anisocytosis Present 04/30/21 22: Rouleaux 1+ 04/30/21 22: PT 11.8 Seconds (9.0-12.0) 04/30/21 22: INR 1.2 (0.9-1.1) H 04/30/21 22: APTT 22.5 Seconds (21.0-31.0) 04/30/21 22: PTT Ratio 0.9 04/30/21 22: Sodium 134 mmol/L (136-145) L 04/30/21 22: Potassium 3.7 mmol/L (3.5-5.1) 04/30/21 22: Chloride 101 mmol/L (98-107) 04/30/21 22:23 Carbon Dioxide 25 mmol/L (21-32) 04/30/21 22:23 Anion Gap 8.0 (3-11) 04/30/21 22:23 BUN 22 mg/dl (7-18) H 04/30/21 22: Creatinine 1.11 mg/dl (0.6-1.2) 04/30/21 22:23 Est Cr Clr Drug Dosing 48.3 ml/min 04/30/21 22:23 Est GFR ( Amer) 59.5 ml/min 04/30/21 22:23 Est GFR (Non-Af Amer) 51.3 ml/min 04/30/21 22:23 BUN/Creatinine Ratio 20.0 (10-20) 04/30/21 22: Glucose 140 mg/dl (70-99) H 04/30/21 22:23 Lactate 1.6 mmol/L (0.4-2.0) 04/30/21 23:39 Calcium 9.6 mg/dl (8.5-10.1) 04/30/21 22:23 Total Bilirubin 1.0 mg/dl (0.2-1) 04/30/21 22:23 AST 7 U/L (15-37) L 04/30/21 22:23 ALT 13 U/L (12-78) 04/30/21 22:23 Alkaline Phosphatase 67 U/L (45-117) 04/30/21 22:23 Total Protein 9.8 gm/dl (6.4-8.2) H 04/30/21 22: Albumin 3.0 gm/dl (3.4-5.0) L 04/30/21 22:23 Globulin 6.8 gm/dl (2.5-4.0) H 04/30/21 22: Albumin/Globulin Ratio 0.4 (0.9-2) L 04/30/21 22: Urine Color Yellow 05/01/21 00:45 Urine Appearance Clear (Clear) 05/01/21 00:45 Urine pH 6.5 (4.5-7.5) 05/01/21 00:45 Ur Specific Brewer 1.009 (1.000-1.030) 05/01/21 00:45 Urine Protein Negative (Negative) 05/01/21 00:45 Urine Glucose (UA) Negative (Negative) 05/01/21 00:45 Urine Ketones Negative (Negative) 05/01/21 00:45 Urine Blood Negative (Negative) 05/01/21 00:45 Urine Nitrite Negative (Negative) 05/01/21 00:45 Urine Bilirubin Negative (Negative) 05/01/21 00:45 Urine Urobilinogen Negative (Negative) 05/01/21 00:45 Ur Leukocyte Esterase Negative (Negative) 05/01/21 00:45 COVID-19 Eval Order Covid19 at [facility] 04/30/21 23:24 SARS-CoV-2 (PCR) NEGATIVE (Negative) 04/30/21 23:24 Code Status & VTE Plan Code Status Full code VTE Prophylaxis Plan VTE Prophylaxis will be ordered: Yes PG Care Time/CCT Total # of Minutes Spent Total Time Spent with Patient: Total time spent is greater than 50% in coordination of care (as documented) at patient's floor/unit and/or counseling patient: Coding Level of Care Code 37736 Initial Inpt Care Lvl 3 Diagnoses Fever R50.9 Chemotherapy adverse reaction T45.1X5A Waldenstrom macroglobulinemia C88.0 Gout M10.9 Anxiety disorder F41.9 Asthma J45.909
[2021-05-01] MEDS ORDERED: SENNA 8.6 MG TAB PO PRN (04:31)
[2021-05-01] MEDS ORDERED: methylPREDNISolone 4 MG TAB PO SCH (04:31)
[2021-05-01] MEDS ORDERED: LORazepam 0.5 MG TAB PO PRN (04:31)
[2021-05-01] MEDS ORDERED: NSS + 20MEQ KCL 20 MEQ/1,000 ML BAG IV SCH (04:31)
[2021-05-01 06:20] LABS: Albumin Level 2.6 gm/dl (3.4-5.0); BUN Creatinine Ratio 22.2 (10-20); Creatinine Clr Calc Pharmacy 64.5 ml/min; Est GFR (African American) 84.6 ml/min; Potassium 3.9 mmol/L (3.5-5.1)
[2021-05-01 06:23] LABS: Albumin Globulin Ratio 0.4 (0.9-2); Globulin 5.9 gm/dl (2.5-4.0); Total Protein 8.5 gm/dl (6.4-8.2)
[2021-05-01] MEDS: ACETAMINOPHEN 325 MG TAB PO PRN ×3 (06:25→22:43)
[2021-05-01 06:57] LABS: Hematocrit (blood only) 21.7 % (37-47); Hemoglobin 6.9 g/dL (12.0-16.0); Mean Corpuscular Hemoglobin 31.7 pg (25-34); Mean Corpuscular Hgb Conc 31.8 g/dL (32-36); Mean Corpuscular Volume 99.5 fL (80-100); Mean Platelet Volume 8.8 fL (7.4-10.4); Nucleated RBC # (auto) 0.06 K/uL (0-0); Nucleated RBC % (auto) 1.8 %; Platelet Count 46 K/uL (130-400); RDW Standard Deviation 78.6 fL (36.4-46.3); Red Blood Count 2.18 M/uL (4.2-5.4); White Blood Count 3.19 K/uL (4.8-10.8)
--- NOTE | 2021-05-01 06:57 | XRay Report ---
XR chest 1V portable HISTORY: 65 years-old Female fever acute fever COMPARISON: Chest CT 04/11/2021, chest radiograph 08/03/2013 TECHNIQUE: Portable AP view of the chest FINDINGS: Cardiomediastinal and hilar silhouettes are within normal limits. Calcified plaque of the thoracic ao rta. No pneumothorax, pleural effusion, airspace consolidation or overt pulmonary edema. Degenerative changes of the shoulders and spine. IMPRESSION: No acute process. ACT 112: Negative or not required by law. The above report was generated using voice recognition software. It may contain grammatical, syntax o r spelling errors. Electronically signed by: Ralph Le M.D. 05/01/2021 6:55 AM
[2021-05-01 07:43] LABS: Anisocytosis Present; Basophils # (auto) 0.01 K/uL (0-0.2); Basophils % (auto) 0.3 %; Eosinophils # (auto) 0.08 K/uL (0-0.5); Eosinophils % (auto) 2.5 %; Immature Granulocytes # (auto) 0.06 K/uL (0.00-0.02); Immature Granulocytes % (auto) 1.9 %; Lymphocytes # (auto) 0.13 K/uL (1.2-3.4); Lymphocytes % (auto) 4.1 %; Monocytes # (auto) 0.36 K/uL (0.11-0.59); Monocytes % (auto) 11.3 %; Neutrophils # (auto) 2.55 K/uL (1.4-6.5); Neutrophils % (auto) 79.9 %; Polychromasia 1+
[2021-05-01] MEDS: AZTREONAM 1,000 MG in DEXTROSE 5% 100 ML IV SCH ×2 (08:46→16:17)
[2021-05-01] MEDS: CALCIUM 600MG + VIT D 400 IU TAB PO SCH ×2 (08:47→21:25)
[2021-05-01] MEDS: LORATADINE 10 MG TAB PO SCH (08:47)
[2021-05-01] MEDS: CHOLECALCIFEROL 1,000 UNITS 25 MCG TAB PO SCH (08:47)
[2021-05-01] MEDS: allopurinoL 300 MG TAB PO SCH (08:47)
[2021-05-01] MEDS: methylPREDNISolone 4 MG TAB PO SCH ×3 (08:47→21:26)
[2021-05-01] MEDS: ASPIRIN 81 MG ECTAB PO SCH (08:47)
[2021-05-01 11:53] LABS: Adenovirus PCR Not Detected (NotDetected); Bordetella parapertussis PCR Not Detected (NotDetected); Bordetella pertussis PCR Not Detected (NotDetected); Chlamydia pneumoniae PCR Not Detected (NotDetected); Coronavirus 229E PCR Not Detected (NotDetected); Coronavirus CoV-2 (COVID19)PCR Not Detected (NotDetected); Coronavirus HKU1 PCR Not Detected (NotDetected); Coronavirus NL63 PCR Not Detected (NotDetected); Coronavirus OC43PCR Not Detected (NotDetected); Human Metapneumovirus PCR Not Detected (NotDetected); Influenza A PCR Not Detected (NotDetected); Influenza B PCR Not Detected (NotDetected); Mycoplasma pneumoniae PCR Not Detected (NotDetected); Parainfluenza Virus 1 PCR Not Detected (NotDetected); Parainfluenza Virus 2 PCR Not Detected (NotDetected); Parainfluenza Virus 3 PCR Not Detected (NotDetected); Parainfluenza Virus 4 PCR Not Detected (NotDetected); Respiratory Syncytial VirusPCR Not Detected (NotDetected); Rhinovirus/Enterovirus PCR Not Detected (NotDetected)
[2021-05-01] MEDS ORDERED: VANCOMYCIN HCL 1,250 MG in SODIUM CHLORIDE 0.9% 250 ML IV SCH (12:00)
[2021-05-01 12:13] LABS: Hematocrit (blood only) 22.8 % (37-47); Hemoglobin 7.1 g/dL (12.0-16.0); Mean Corpuscular Hemoglobin 31.8 pg (25-34); Mean Corpuscular Hgb Conc 31.1 g/dL (32-36); Mean Corpuscular Volume 102.2 fL (80-100); Nucleated RBC # (auto) 0.06 K/uL (0-0); Nucleated RBC % (auto) 1.7 %; RDW Standard Deviation 80.5 fL (36.4-46.3); Red Blood Count 2.23 M/uL (4.2-5.4); White Blood Count 3.53 K/uL (4.8-10.8)
[2021-05-01 12:21] LABS: Basophils # (auto) 0.01 K/uL (0-0.2); Basophils % (auto) 0.3 %; Eosinophils # (auto) 0.09 K/uL (0-0.5); Eosinophils % (auto) 2.5 %; Immature Granulocytes # (auto) 0.04 K/uL (0.00-0.02); Immature Granulocytes % (auto) 1.1 %; Lymphocytes # (auto) 0.36 K/uL (1.2-3.4); Lymphocytes % (auto) 10.2 %; Mean Platelet Volume 8.5 fL (7.4-10.4); Monocytes # (auto) 0.07 K/uL (0.11-0.59); Neutrophils # (auto) 2.96 K/uL (1.4-6.5); Neutrophils % (auto) 83.9 %; Platelet Count 47 K/uL (130-400)
[2021-05-01 12:48] LABS: CoV2 Total Antibody Positive (Negative)
[2021-05-01 12:56] LABS: Anisocytosis Present
[2021-05-01] MEDS: ONDANSETRON INJ 2 MG/ML 2 ML VIAL IV PRN (14:38)
--- NOTE | 2021-05-01 15:02 | Hospitalist Progress Note ---
Date of Service May 01, 2021 Assessment & Plan (1) Fever: Plan: Fever without obvious source of infection UA: Not grossly infected Covid: Negative CXR: No acute cardiopulmonary process No obvious skin lesions or rashes No S/S infection other than fever I suspect this fever is likely due to an immune response given recent Covid booster, then flu vaccine, then 2 rounds of chemotherapy Blood cultures ordered and pending Bio fire obtained Patient is not having any abdominal discomfort. I do not feel that she needs a CT of the abdomen and pelvis at this time or a right upper quadrant ultrasound. In addition, I am not overly convinced that she needs an echocardiogram (would pursue if her blood cultures come back positive for staph) Patient has already been started on empiric antibiotic therapy (as lactam/vancomycin). Could argue holding off on any antibiotic therapy to allow an underlying infectious process to present itself; however, she is already been started on this. We will continue for now Ultimately, I think the fever is likely related to her immune response. I did reach out to her established lens fabricating machine tender/oncologist (Dr. Sang Rosado) who agrees and is available for phone consultation if need be (2) Pancytopenia: Plan: Likely secondary to Waldenstrom macroglobulinemia as discussed with Dr. Rosado Oncology reports that her pancytopenia may take a month or more to improve and he knew there was a risk that it could get worse before starting to improve Hemoglobin was 6.9 this morning; however, was not far from baseline7.9 upon arrival. She was not symptomatic and was hemodynamically stable other than some very mild tachycardia Typically, would transfuse; however, I needed to give an asymptomatic and hemodynamically stable but patient blood and run the risk of her developing/spiking a subsequent fever from the immune response of giving blood I did discuss holding off on transfusion with Dr. Rosado who agreed. Follow-up H/H 7.1. IV fluids subsequently stopped (tolerating oral intake and no evidence of hyperviscosity syndrome) as will only further dilute blood (3) Chemotherapy adverse reaction: Plan: See above (4) Waldenstrom macroglobulinemia: Plan: Undergoing chemotherapy No evidence of hyperviscosity syndrome. Renal function stable. No change in mentation (5) Gout: Plan: Continue allopurinol (6) Anxiety disorder: Plan: Continue Ativan Psychiatric liaison has evaluated the patient and has since signed off (due to home stressors of recently having a sex change and now starting chemotherapy) (7) Asthma: Plan: Xopenex on short supply Duonebs every 2 hours when necessary. Plan: Continue empiric antibiotic therapy Awaiting blood cultures and results of bio fire panel Plan of care to be discussed with Dr. Ibarra. Further orders as warranted Admission and Anticipated Discharge Date Admission Date: May 01, 2021 Subjective Patient seen on daily rounds today. Admitted in the overnight hours for fever of unknown origin. She is a 65-year-old white female with a past medical history of Waldenstrom macroglobulinemia and follows Dr. Sang Rosado. Last seen by him on 04/15 when she was noticed to have developed a pancytopenia. Given this, he felt that she should start chemotherapy. Was recommending Bendamustine + Rituximab. Had this on 04/24 and 04/25. Was told that this could potentially make her platelet count slightly lower until it got better and to watch for any bleeding. In addition, was supposed to watch for any signs of infection such as fever. On 04/27 had a very mild nosebleed and was told to use a humidifier and apply Preparation H. This stopped the bleeding. Over the next several days, she developed fevers as high as 102 prompting her to come to the emergency department. She does have chills and overall just feels easily fatigued but otherwise denies headache, nasal congestion, sore throat, cough, change in taste/smell, chest pain, palpitations, shortness of breath, abdominal pain, nausea, vomiting, diarrhea, melena, hematochezia, skin lesions or rashes. Presented to the ED where she was found to be mildly tachycardic at 111 bpm but was otherwise hemodynamically stable. She has been running a low-grade fever since (T-max 100.04). She is pancytopenic: White blood cell count 3.19. Hemoglobin 6.9. Platelet count 46. Otherwise her metabolic panel is unremarkable. Covid test negative Urinalysis not grossly infected CXR within normal limits Upon further questioning, she not only had her first round of chemotherapy last week (2 consecutive days) but also received her Covid booster in addition to her flu vaccine. Did feel generally ill after each of these injections. Nursing staff did request the psych liaison do an evaluation due to a trigger. Apparently patient has been struggling emotionally as her of 40+ years recently decided to have a sex change. He still living in the home but is no longer "her ". Psych did evaluate the patient and feels comfortable signing off at this point. Patient requesting no additional medication at this time. Review of Systems Review of Systems: All systems reviewed and are unremarkable except as noted in HPI and below Denies headache, nasal congestion, sore throat, cough, chest pain, shortness of breath, palpitations, orthopnea, PND, abdominal pain, nausea, vomiting, diarrhea, constipation, dysuria, hematuria, frequency, back pain, joint pain or swelling, easy bruising or bleeding, skin lesions or rashes. Physical Exam Physical Exam: General: Resting comfortably in her hospital bed. She does not appear ill or toxic NAD. HEENT: Head is AT/NC buccal mucosa is moist and pink Neck: No JVD. Negative hepatojugular reflex Cardiac: RRR with 1/6 JUDY Lungs: CTA without W/R/R Abdomen: Normoactive X4. Soft and nontender in all quadrants. Extremities: No peripheral clubbing cyanosis or edema Neuro: A&O X4 cranial nerves II through XII are grossly intact no focal neuro deficits Skin: No obvious skin lesions or rashes Psych: Appropriate affect pleasant and cooperative Results & Data Results & Data ([facility]) Vital Signs (Past 12 Hours) Vital Signs Temp Pulse Pulse Resp BP BP Pulse Ox 05/01/21 11:35 36.9 C 99 H 20 129/67 96 05/01/21 08:00 37.1 C 96 H 105 H 20 143/61 H 94 05/01/21 06:35 37.8 C H 111 H 20 174/78 H 98 05/01/21 03:00 97 H 25 H 134/75 90 Pulse Ox 05/01/21 11:35 05/01/21 08:00 94 05/01/21 06:35 05/01/21 03:00 Laboratory Results 05/01/21 11:58 05/01/21 05:46 Covid: Negative Urinalysis: Not grossly infected Patient seen by hematology/oncology recently. She had a TIBC that was 283. Iron level 104. B12 489. Diagnostic Findings CXR: No acute cardiopulmonary process PG Care Time/CCT Total # of Minutes Spent Total Time Spent with Patient: Total time spent is greater than 50% in coordination of care (as documented) at patient's floor/unit and/or counseling patient: Coding Level of Care Code None Diagnoses Fever R50.9 Chemotherapy adverse reaction T45.1X5A Waldenstrom macroglobulinemia C88.0 Gout M10.9 Anxiety disorder F41.9 Asthma J45.909 Pancytopenia D61.818
--- NOTE | 2021-05-01 15:50 | Pharmacy Report ---
Pharmacy Vanc AUC Short Note - Date of Service May 01, 2021 - Assessment & Plan Assessment 65 year old F receiving vancomycin/aztreonam empirically for treatment of fever. Pertinent microbiologic data includes: blood cultures pending. Therapy initiated last evening. Renal function did improve today, will monitor trend. If therapy to continue past current 48 hour duration will order level and assess need for dose adjustment. Day # 1 of antimicrobial therapy. Plan Vancomycin * AUC/FAISAL is the preferred PK/PD target for vancomycin * AUC guided dosing is effective and associated with decreased risk of nephrotoxicity compared to traditional trough targets * Continue dose of 1250 mg IV every 24 hours * Trough or random level ordered for: will order if therapy to continue past 48 hours Pharmacy will continue to follow and will adjust dose/frequency as necessary. Thank you.
[2021-05-01] MEDS ORDERED: FAMOTIDINE 20 MG TAB PO ONE (16:37)
[2021-05-01] MEDS ORDERED: diphenhydrAMINE Capsule 25 MG CAP PO ONE ×2 (16:38→17:01)
[2021-05-01] MEDS ORDERED: FAMOTIDINE 20 MG TAB PO STA (17:01)
[2021-05-01] MEDS ORDERED: LORazepam 0.5 MG TAB PO STA (20:29)
[2021-05-01] MEDS: ARTIFICIAL TEARS OP OINT 3.5 GM TUBE OP SCH (21:25)
[2021-05-01] MEDS: ADVANCED PROBIOTIC 1250 MG CAPSULE PO SCH (21:25)
[2021-05-01] MEDS: MONTELUKAST SODIUM 10 MG TABLET PO SCH (21:26)
[2021-05-02] MEDS: ONDANSETRON INJ 2 MG/ML 2 ML VIAL IV PRN (05:54)
--- NOTE | 2021-05-02 06:02 | Electrocardiogram Report ---
Test Reason : Blood Pressure : / mmHG Vent. Rate : 118 BPM Atrial Rate : 118 BPM P-R Int : 136 ms QRS Dur : 084 ms QT Int : 312 ms P-R-T Axes : 068 046 012 degrees QTc Int : 437 ms Sinus tachycardia Nonspecific ST abnormality Abnormal ECG When compared with ECG of 04-DEC-2015 10:00, Vent. rate has increased BY 44 BPM T wave inversion more evident in Inferior leads Confirmed by Dav Quintero ([id number]) on 05/02/2021 6:02:22 AM Referred By: REFERRED SELF Confirmed By:Dav Quintero
--- NOTE | 2021-05-02 06:27 | Communication Note ---
Date of Service: May 02, 2021 Night team contacted by nursing for report of an unresponsive episode this morning. Patient got up to use the restroom - she stood up and felt dizzy so she sat back down on the toilet. Nursing returned to find her slumped against the side wall of the bathroom. Her eyes were open but she was not responding to the staff. She was incontinent of stool during this episode. No seizure like activity was observed. Her BP was soft immediately after this episode - HR in the 90s, but oxygen was normal. Her blood sugar was 178. Patient was then helped back into bed - she apparently had no recollection of what had just happened. I spoke with tele monitor and she said HR was steady and rhythm was regular in the time during this episode. I ordered a 1liter bolus of NSS. Consideration should be given to eeg given confusion after unresponsive episdoe.
[2021-05-02] MEDS: SODIUM CHLORIDE 0.9% 1000ML 1,000 ML IV ONE ×2 (06:49→08:05)
[2021-05-02] MEDS ORDERED: methylPREDNISolone 4 MG TAB PO SCH (07:00)
[2021-05-02 08:02] LABS: Hematocrit (blood only) 24.3 % (37-47); Hemoglobin 7.7 g/dL (12.0-16.0); Mean Corpuscular Hemoglobin 32.2 pg (25-34); Mean Corpuscular Hgb Conc 31.7 g/dL (32-36); Mean Corpuscular Volume 101.7 fL (80-100); RDW Coefficient of Variation 22.3 % (11.5-14.5); RDW Standard Deviation 81.7 fL (36.4-46.3); Red Blood Count 2.39 M/uL (4.2-5.4); White Blood Count 5.76 K/uL (4.8-10.8)
[2021-05-02 08:06] LABS: Mean Platelet Volume 9.7 fL (7.4-10.4); Platelet Count 68 K/uL (130-400)
[2021-05-02] MEDS: CHOLECALCIFEROL 1,000 UNITS 25 MCG TAB PO SCH (08:06)
[2021-05-02] MEDS: ASPIRIN 81 MG ECTAB PO SCH (08:06)
[2021-05-02] MEDS: allopurinoL 300 MG TAB PO SCH (08:06)
[2021-05-02] MEDS: LORATADINE 10 MG TAB PO SCH (08:06)
[2021-05-02] MEDS: CALCIUM 600MG + VIT D 400 IU TAB PO SCH ×2 (08:06→20:23)
[2021-05-02 08:42] LABS: Procalcitonin 0.42 ng/ml (0-0.5)
[2021-05-02 09:00] LABS: Lyme Ab IgG w/WB Rflx Negative (Negative); Lyme Ab IgM w/WB Rflx Negative (Negative)
[2021-05-02 09:18] LABS: Anisocytosis Present; Basophils # (auto) 0.01 K/uL (0-0.2); Basophils % (auto) 0.2 %; Dohle Bodies 1+; Eosinophils # (auto) 0.11 K/uL (0-0.5); Eosinophils % (auto) 1.9 %; Immature Granulocytes # (auto) 0.04 K/uL (0.00-0.02); Immature Granulocytes % (auto) 0.7 %; Lymphocytes # (auto) 0.25 K/uL (1.2-3.4); Lymphocytes % (auto) 4.3 %; Monocytes # (auto) 0.21 K/uL (0.11-0.59); Monocytes % (auto) 3.6 %; Neutrophils # (auto) 5.14 K/uL (1.4-6.5); Neutrophils % (auto) 89.3 %; Polychromasia 1+
[2021-05-02 09:41] LABS: Albumin Globulin Ratio 0.4 (0.9-2); Albumin Level 2.5 gm/dl (3.4-5.0); BUN Creatinine Ratio 26.1 (10-20); Bilirubin,Total 1.3 mg/dl (0.2-1); Calcium 8.9 mg/dl (8.5-10.1); Est GFR (African American) 69.2 ml/min; Est GFR (Non-African American) 59.7 ml/min; Globulin 6.3 gm/dl (2.5-4.0); Total Protein 8.8 gm/dl (6.4-8.2)
[2021-05-02 09:51] LABS: Potassium 4.1 mmol/L (3.5-5.1)
--- NOTE | 2021-05-02 12:24 | Ultrasound Report ---
BILATERAL CAROTID DOPPLER STUDY HISTORY: syncope. assess flow COMPARISON: None. TECHNIQUE: Real-time, grayscale, and color Doppler sonography of the carotid arteries was performed. Imaging reviewed in the transverse and longitudinal planes. All measurements were calculated based on NASCET criteria. FINDINGS: Antegrade flow is seen in the bilateral vertebral arteries. The brachial pressures are hemodynamically similar. No significant calcified plaque. The peak systolic velocity within the right ICA is 70 cm/s. The right systolic ratio is 1. The peak systolic velocity within the left ICA is 100 cm/s. The left systolic ratio is 1.2. IMPRESSION: No hemodynamically significant stenosis seen within the carotid arteries. ACT 112: Negative or not required by law. Electronically signed by: Manuel Gan M.D. 05/02/2021 12:23 PM
[2021-05-02] MEDS ORDERED: OPTIRAY 320 125ml IV ONE (12:58)
--- NOTE | 2021-05-02 13:07 | CT Scan Report ---
CT angio chest PE protocol CLINICAL HISTORY: r/o PE. tachycardia, hypoxemia, hypotension TECHNIQUE: Multidetector row helical CT of the chest was performed. Coronal and sagittal reformations were obtained. Automated dose lowering techniques and/or adjustment according to patient size were u tilized for this exam. Comparison: None available at the time of this dictation. CT chest 04/11/2021 FINDINGS: Lungs and pleura: Exam is limited by patient motion. Bibasilar atelectasis is seen. Heart and pericardium: Heart size is normal. No pericardial effusion. Vessels: No evidence of pulmonary embolism. Mediastinum and segundo: Unremarkable. Chest wall and lower neck: Enlarged axillary lymph nodes are seen, measuring 14 mm in short axis on t he right and 9 mm on the left. Abdomen: For findings below the diaphragm, please refer to CT of the abdomen dated the same. Bones: Degenerative changes and old healed rib fractures are noted. IMPRESSION: 1. Enlarged right greater than left axillary lymph nodes, of uncertain etiology. Correlation for inf ectious, inflammatory, or metastatic process. 2. No evidence of pulmonary embolus. 3. Cardiomegaly. ACT 112: Negative or not required by law. Electronically signed by: Jian Santiago M.D. 05/02/2021 1:06 PM
--- NOTE | 2021-05-02 13:15 | CT Scan Report ---
CT abd pelvis oral and IV con CLINICAL HISTORY: fever TECHNIQUE: Helical axial images of the abdomen and pelvis were obtained and displayed. Automated dose lowering techniques and/or adjustment according to patient size were utilized for this exam. This e xam was performed with intravenous contrast. COMPARISON: Comparison is made to CT abdomen and pelvis 04/11/2021 FINDINGS: Lower chest: For findings above the diaphragm, please see CT chest performed same day. Liver: Hepatic steatosis is noted. Gallbladder and biliary tree: Patient is status post cholecystectomy. No intra- or extrahepatic bilia ry ductal dilation. Pancreas: Unremarkable, no focal lesions. Spleen: Splenomegaly is noted, the spleen measures a splenule is noted. Adrenals: Unremarkable. Kidneys and ureters: Nonobstructive nephrolithiasis is seen. Subcentimeter hypodensities are seen in the left kidney favored to represent cysts. Bladder: Unremarkable. Reproductive organs: Unremarkable. Bowel: Diverticulosis is seen without evidence of diverticulitis. A hiatal hernia is seen. The append ix is not definitely visualized however no secondary signs for appendicitis are seen. Lymph nodes Retroperitoneal: Unremarkable. Mesenteric: Unremarkable. Pelvic: Unremarkable. Peritoneum: Normal Vessels: Unremarkable. Abdominal wall: A fat-containing umbilical hernia is seen. Bones: Unremarkable. IMPRESSION: 1. No acute abnormality below the diaphragm. 2. Hiatal hernia. 3. Hepatic steatosis. 4. Diverticulosis without evidence of diverticulitis. ACT 112: Negative or not required by law. Electronically signed by: Jian Santiago M.D. 05/02/2021 1:13 PM
[2021-05-02] MEDS: ACETAMINOPHEN 325 MG TAB PO PRN ×2 (14:13→20:20)
--- NOTE | 2021-05-02 16:00 | Hospitalist Progress Note ---
Date of Service May 02, 2021 Assessment & Plan (1) Fever: Plan: Fever without obvious source of infection UA: Not grossly infected Covid: Negative CXR: No acute cardiopulmonary process No obvious skin lesions or rashes Given the mild tachycardia, hypotensive episode with syncope, and mild hypoxemiaI ordered a CTA to rule out PE. No PE noted. Reactive nodes seen. atelectasis seen CT of the abdomen and pelvis shows no acute intra-abdominal process Bio fire ordered and pending Blood cultures pending. No growth to date. Would repeat if patient develops subsequent fever Urine culture showing no growth to date Procalcitonin normal: 0.42. Will repeat in a.m. CRP/ESR ordered and pending. If significantly elevated would be inclined to add antibiotic therapy No obvious source of infection seen fever related to immune response given recent Covid booster, then flu vaccine, then 2 rounds of chemotherapy?. Perhaps a viral syndrome? perhaps secondary to atelectasis? Initially started on vancomycin/aztreonam but following 1 dose of each, de veloped a rash. Antibiotic therapy subsequently held/stopped to allow a potential underlying infection to present itself which it has yet to do Hold off on any antibiotic therapy for now I have consulted with Dr. Johnathan Rosado (patient's established oncologist) who agrees (2) Tachycardia: Plan: Mild and seems to be anxiety driven rather than infection driven Again no obvious S/S of infection Procalcitonin negative CRP/sed rate pending. If elevated would be inclined to add antibiotic therapy May even be related to the fact that her prednisone was increased to twice a day. Patient takes methylprednisolone 4 mg daily but this was increased for mild steroid challenge given the fever (3) Drug reaction: Plan: Uncertain if this was from the aztreonam or vancomycin as happened shortly after infusion of both Resolved with Pepcid/Benadryl Hold off on any antibiotic therapy for now as outlined above (4) Syncope: Plan: I suspect this was likely vasovagal as occurred while toileting CTA done to rule out PE Echocardiogram ordered Obtain carotid Dopplers to assess flow Obtain orthostatic vital signs (5) Pancytopenia: Plan: Likely secondary to Waldenstrom macroglobulinemia as discussed with Dr. Rosado Oncology reports that her pancytopenia may take a month or more to improve and he knew there was a risk that it could get worse before starting to improve Hemoglobin was 6.9 on the day of admission; however, was not far from baseline7.9 upon arrival. She was not symptomatic and was hemodynamically sta ble other than some very mild tachycardia Did not give blood as she was asymptomatic and there was risk of fever from blood This was discussed with Dr. Rosado who agreed Her H/H was followed and subsequent hemoglobin was 7.1. 05/02 hemoglobin is 7.7 (6) Chemotherapy adverse reaction: Plan: See above (7) Waldenstrom macroglobulinemia: Plan: Undergoing chemotherapy No evidence of hyperviscosity syndrome. Renal function stable. No change in mentation (8) Gout: Plan: Continue allopurinol (9) Anxiety disorder: Plan: Continue Ativan but change to every 6 hours as needed as anxiety seems to be really driving her tachycardia Psychiatric liaison has evaluated the patient and has since signed off (due to home stressors of recently having a sex change and now starting chemotherapy) (10) Asthma: Plan: Initiate neb treatments every 6 hours X 24 hours routine and then as needed Use Xopenex due to mild tachycardia and risk for further tachycardia Plan: Plan of care discussed with Dr. Ibarra Admission and Anticipated Discharge Date Admission Date: May 01, 2021 Subjective Patient seen on daily rounds today. Did have a low-grade fever last evening at 11 PM (100.2). Was afebrile overnight until this morning at 8:00 when her temp was 100.1. Again, all low-grade. Nothing greater then 100.2. In addition, she had a syncopal episode while toileting this morning. Reports that she was sitting on the commode. When nurse came in to check on her, she was slumped over onto the wall. Her blood pressure was 89/50 at that time but everything else was unremarkable. Blood sugar was normal. She was awake and able to walk back to bed with assistance. Was given some IV fluids. Blood pressure this morning is 103/62. She is slightly tachycardic at 113. And she is now requiring a minimal amount of oxygen as her pulse ox was 89% on room air. She was voiding whenever she had the syncopal event. She felt dizzy prior to. She was not confused following. No tongue trauma or witnessed seizure activity. No chest pain or palpitations. Patient denies shortness of breath despite mild hypoxemia. She is not having a cough or respiratory symptoms. She did have a bout of emesis when sitting on the toilet but otherwise is not feeling nauseated now. She reports that she had an episode of nausea yesterday when her (home is now a female and patient is struggling to come to terms with this) came to visit. Nurse reports that the patient was extremely anxious during this time. Given the syncopal episode, mild tachycardia, mild hypoxemia and persistent low- grade fevers along with her [place] macroglobulinemia and risk for hyp erviscositya CTA of the chest was performed to rule out PE. No obvious PE but reactive nodes noted which could be infectious versus inflammatory versus metastatic process. Since I was doing a CT of the chest I also did a CT of the abdomen and pelvis to rule out underlying infectious process. No acute pathology seen. Procalcitonin subsequently ordered and negative. Again, as stated in the addendum to yesterday, patient's antibiotic therapy has since been stopped as she developed a rash. It was uncertain if this was from the vancomycin or aztreonam. She was given 1 dose of Pepcid and Benadryl and her rash resolved. Has not since returned. Review of Systems Review of Systems: All systems reviewed and are unremarkable except as noted in HPI and below Currently, patient denies fevers, chills, headache, nasal congestion, sore throat, cough, chest pain, shortness of breath, palpitations, orthopnea, PND, abdominal pain, nausea, vomiting, diarrhea, constipation, dysuria, hematuria, frequency, back pain, joint pain or swelling, easy bruising or bleeding, skin lesions or rashes. Physical Exam Physical Exam: General: Resting comfortably in her hospital bed. She seems mildly diaphoretic but not in any acute distress. She does not appear ill or toxic. NAD. HEENT: Head is AT/NC buccal mucosa is moist and pink Neck: No JVD. Negative hepatojugular reflex Cardiac: RRR without M/G/R Lungs: Speaking full sentences on supplemental oxygen. Breathing nonlabored. Clear to auscultation without W/R/R Abdomen: Normoactive X4. Soft and nontender in all quadrants. Extremities: No peripheral clubbing cyanosis or edema Neuro: A&O X4 cranial nerves II through XII are grossly intact no focal neuro de ficits Skin: No obvious skin lesions or rashes Psych: Appropriate affect pleasant and cooperative Results & Data Results & Data ([facility]) Vital Signs (Past 12 Hours) Vital Signs Temp Pulse Pulse Resp BP BP Pulse Ox 05/02/21 12:08 37 C 112 H 16 107/56 L 96 05/02/21 11:43 74 05/02/21 08:39 37.6 C H 113 H 20 103/62 89 L 05/02/21 05:57 36.8 C 94 H 18 90/54 L 96 05/02/21 04:08 37.3 C 100 H 16 89/50 L 95 Laboratory Results 05/02/21 07:46 05/02/21 07:46 PG Care Time/CCT Total # of Minutes Spent Total Time Spent with Patient: Total time spent is greater than 50% in coordination of care (as documented) at patient's floor/unit and/or counseling patient: Coding Level of Care Code 90344 Subseq Hosp Care Lvl 3 Diagnoses Fever R50.9 Pancytopenia D61.818 Chemotherapy adverse reaction T45.1X5A Waldenstrom macroglobulinemia C88.0 Gout M10.9 Anxiety disorder F41.9 Asthma J45.909 Drug reaction T50.905A Syncope R55 Tachycardia R00.0
--- NOTE | 2021-05-02 16:59 | XCELERA ---
[id number]
[2021-05-02] MEDS: LEVALBUTEROL HCL 0.63 MG/3 ML NEB NEB SCH (19:20)
[2021-05-02] MEDS: ARTIFICIAL TEARS OP OINT 3.5 GM TUBE OP SCH (20:22)
[2021-05-02] MEDS: ADVANCED PROBIOTIC 1250 MG CAPSULE PO SCH (20:23)
[2021-05-02] MEDS: MONTELUKAST SODIUM 10 MG TABLET PO SCH (20:23)
[2021-05-03] MEDS: LEVALBUTEROL HCL 0.63 MG/3 ML NEB NEB SCH ×5 (00:42→19:24)
[2021-05-03] MEDS: LORazepam 0.5 MG TAB PO PRN ×2 (02:42→08:17)
[2021-05-03] MEDS: ACETAMINOPHEN 325 MG TAB PO PRN ×3 (02:42→21:22)
[2021-05-03] MEDS ORDERED: VANCOMYCIN CONSULT ACTIVE PRN (05:29)
--- NOTE | 2021-05-03 05:33 | Communication Note ---
Date of Service: May 03, 2021 Called overnight as patient's BCx growing gram positive cocci in clusters. She was admitted for fever of unknown origin. Patient was taken of of antibiotics 05/01; was on vanc/aztreonam and had a rash. Will place patient back on vancomycin to cover for MRSA and await sensitivities. If patient develops rash again can consider other antibiotics based on sensitivities of culture. Resident Activity Tracking Resident Involvement: Resident Care Provided Care Provided: Adult Hospital Medicine
[2021-05-03] MEDS ORDERED: VANCOMYCIN HCL 2,000 MG in SODIUM CHLORIDE 0.9% 500 ML IV ONE (06:00)
[2021-05-03] MEDS ORDERED: methylPREDNISolone 4 MG TAB PO SCH (07:00)
[2021-05-03] MEDS ORDERED: LINEZOLID CONSULT ACTIVE PRN (07:15)
[2021-05-03] MEDS ORDERED: LINEZOLID 600 MG/300 ML D5W IV SCH (07:15)
[2021-05-03] MEDS: allopurinoL 300 MG TAB PO SCH (08:13)
[2021-05-03] MEDS: CALCIUM 600MG + VIT D 400 IU TAB PO SCH ×2 (08:13→21:59)
[2021-05-03] MEDS: CHOLECALCIFEROL 1,000 UNITS 25 MCG TAB PO SCH (08:13)
[2021-05-03] MEDS: LORATADINE 10 MG TAB PO SCH (08:14)
[2021-05-03] MEDS: ASPIRIN 81 MG ECTAB PO SCH (08:14)
[2021-05-03] MEDS ORDERED: FAMOTIDINE 20 MG TAB PO ONE (08:45)
[2021-05-03] MEDS ORDERED: diphenhydrAMINE Capsule 25 MG CAP PO ONE (08:45)
[2021-05-03 08:59] LABS: Hematocrit (blood only) 21.5 % (37-47); Hemoglobin 6.7 g/dL (12.0-16.0); Mean Corpuscular Hemoglobin 32.1 pg (25-34); Mean Corpuscular Hgb Conc 31.2 g/dL (32-36); Mean Corpuscular Volume 102.9 fL (80-100); Mean Platelet Volume 9.3 fL (7.4-10.4); Nucleated RBC # (auto) 0.04 K/uL (0-0); Nucleated RBC % (auto) 0.7 %; Platelet Count 59 K/uL (130-400); RDW Standard Deviation 82.1 fL (36.4-46.3); Red Blood Count 2.09 M/uL (4.2-5.4); White Blood Count 5.63 K/uL (4.8-10.8)
[2021-05-03 09:12] LABS: Anisocytosis Present; Basophils # (auto) 0.01 K/uL (0-0.2); Basophils % (auto) 0.2 %; Eosinophils # (auto) 0.14 K/uL (0-0.5); Eosinophils % (auto) 2.5 %; Hypochromasia Present; Immature Granulocytes # (auto) 0.03 K/uL (0.00-0.02); Immature Granulocytes % (auto) 0.5 %; Lymphocytes # (auto) 0.26 K/uL (1.2-3.4); Lymphocytes % (auto) 4.6 %; Monocytes # (auto) 0.12 K/uL (0.11-0.59); Monocytes % (auto) 2.1 %; Neutrophils # (auto) 5.07 K/uL (1.4-6.5); Neutrophils % (auto) 90.1 %; Polychromasia 1+
[2021-05-03] MEDS ORDERED: ACETAMINOPHEN 325 MG TAB PO ONE (09:13)
[2021-05-03] MEDS ORDERED: SODIUM CHLORIDE 0.9% 250 ML IV PRN (09:13)
[2021-05-03 09:18] LABS: Albumin Level 2.1 gm/dl (3.4-5.0); C Reactive Protein 13.5 mg/dl (0-0.29); Calcium 8.4 mg/dl (8.5-10.1); Est GFR (African American) 85.8 ml/min; Potassium 3.7 mmol/L (3.5-5.1)
[2021-05-03 09:20] LABS: Albumin Globulin Ratio 0.4 (0.9-2); Bilirubin,Total 1.1 mg/dl (0.2-1); Globulin 5.7 gm/dl (2.5-4.0); Total Protein 7.8 gm/dl (6.4-8.2)
[2021-05-03] MEDS: LIDOCAINE 5% 1 PATCH TD SCH (10:48)
--- NOTE | 2021-05-03 11:42 | Hospitalist Progress Note ---
Date of Service May 03, 2021 Assessment & Plan (1) Fever: Plan: Fever without obvious source of infection UA: Not grossly infected Covid: Negative CXR: No acute cardiopulmonary process No obvious skin lesions or rashes 05/02: mild tachycardia, hypotensive episode with syncope, and mild hypoxemia: CTA done showing no evidence of PE but atelectatic changes CT of the abdomen and pelvis shows no acute intra-abdominal process Biofire ordered and pending Blood cultures pending. 07/08 tubes with GPC clusters. Given 3 other tubes showing NGTD-- suspect that this to be a contaminated specimen. HOLD OFF ON ABX AT THIS TIME as if showing staph aureus, would need 14 days of IV antibiotic therapy (I do not want to commit her to this if her BC is in fact contaminated) Repeat blood cultures. No substantial antibiotic therapy has been provided at this time Urine culture showing no growth to date Procalcitonin normal: 0.42. CRP/ESR ordered and pending-- both slightly elevated but this could be from her cancer No obvious source of infection seen fever related to immune response given recent Covid booster, then flu vaccine, then 2 rounds of chemotherapy? and atelectasis? Initially started on vancomycin/aztreonam but following 1 dose of each, developed a rash. Antibiotic therapy subsequently held/stopped to allow a potential underlying infection to present itself which it has yet to do Hold off on any antibiotic therapy for now I have consulted with Dr. Johnathan Rosado (patient's established oncologist) who agrees (2) Tachycardia: Plan: Mild and seems to be anxiety driven rather than infection driven Again no obvious S/S of infection Procalcitonin negative CTA negative for PE May even be related to the fact that her prednisone was increased to twice a day. Patient takes methylprednisolone 4 mg daily but this was increased for mild steroid challenge given the fever. Back to usual dose now (3) Drug reaction: Plan: Uncertain if this was from the aztreonam or vancomycin as happened shortly after infusion of both. 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 STOP VANCO. Resolved with Pepcid/Benadryl Hold off on any antibiotic therapy for now as outlined above (4) Syncope: Plan: I suspect this was likely vasovagal as occurred while toileting CTA : negative for PE TTE: EF 65-70%. No significant valvulopathy carotid dopplers: no significant stenosis Anemia also likely driving this (5) Pancytopenia: Plan: Likely secondary to Waldenstrom macroglobulinemia as discussed with Dr. Rosado Oncology reports that her pancytopenia may take a month or more to improve and he knew there was a risk that it could get worse before starting to improve Hemoglobin was 6.9 on the day of admission; however, was not far from baseline7.9 upon arrival. She was not symptomatic and was hemodynamically stable other than some very mild tachycardia Did not give blood initially as she was not overly symptomatic and there was risk of fever from blood This was discussed with Dr. Rosado who agreed Her H/H has been stable in the 7's but has since dropped to 6.7 Patient with excessive fatigue today but otherwise hemodynamically stable We will type and crossmatch 2 units of blood and transfuse when ready. Premedicate with Tylenol/Benadryl (6) Chemotherapy adverse reaction: Plan: See above (7) Waldenstrom macroglobulinemia: Plan: Undergoing chemotherapy No evidence of hyperviscosity syndrome. Renal function stable. No change in mentation We will need to follow-up with established oncologist (8) Gout: Plan: Continue allopurinol (9) Anxiety disorder: Plan: Continue Ativan but change to every 6 hours as needed as anxiety seems to be really driving her tachycardia Psychiatric liaison has evaluated the patient and has since signed off (due to home stressors of recently having a sex change and now starting chemoth erapy) Patient has been declining medication at this time (10) Asthma: Plan: Initiate neb treatments every 6 hours X 24 hours routine and then as needed Use Xopenex due to mild tachycardia and risk for further tachycardia Admission and Anticipated Discharge Date Admission Date: May 01, 2021 Subjective Patient seen on daily rounds today. She had a CTA of the chest and and a CT A/P that showed no evidence of PE. Did show atelectasis. Has since been started on incentive spirometry and routine nebulized treatments. Thus far, no fevers since. Blood cultures: 1/4 tubes showing gram-positive cocci. Overnight provider was called with this and empirically ordered vancomycin. Patient received 10 minutes of infusion and subsequently developed a rash. This was stopped I did call the lab and micro is confirming that 3 out of 4 of the tubes are showing no growth to date Hemoglobin low today at 6.7. Patient denies dizziness/lightheadedness but is feeling fatiguedespecially with ambulation CRP done yesterday and elevated at 13.5 ESR: 31 Review of Systems Review of Systems: All systems reviewed and are unremarkable except as noted in HPI and below Reports excessive fatigueworse with exertion. Otherwise, denies fevers, chills, headache, nasal congestion, sore throat, cough, chest pain, shortness of breath, palpitations, orthopnea, PND, abdominal pain, nausea, vomiting, diarrhea, constipation, dysuria, hematuria, frequency, back pain, joint pain or swelling, easy bruising or bleeding, Physical Exam Physical Exam: General: Resting comfortably in her hospital bed. She does not appear ill or toxic. Appears brighter and much better compared to yesterday HEENT: Head is AT/NC buccal mucosa is moist and pink Neck: No JVD. Negative hepatojugular reflex Cardiac: RRR without M/G/R Lungs: Breathing comfortably on ambient air. No accessory muscle use. No wheezes, rales or rhonchi Abdomen: Normoactive X4. Soft and nontender in all quadrants. Extremities: No peripheral clubbing cyanosis or edema Neuro: A&O X4 cranial nerves II through XII are grossly intact no focal neuro deficits Skin: No obvious skin lesions or rashes Psych: Flat affect Results & Data Results & Data ([facility]) Vital Signs (Past 12 Hours) Vital Signs Temp Pulse Pulse Resp BP BP BP 05/03/21 11:29 37.0 C 112 H 16 107/56 L 05/03/21 08:57 101 H 18 05/03/21 08:20 37.5 C 106 H 17 105/66 05/03/21 07:07 100 H 05/03/21 02:36 120/75 05/03/21 02:18 37.0 C 110 H 18 95/61 L Pulse Ox 05/03/21 11:29 96 05/03/21 08:57 93 05/03/21 08:20 94 05/03/21 07:07 05/03/21 02:36 05/03/21 02:18 95 Laboratory Results 05/03/21 08:38 05/03/21 08:38 PG Care Time/CCT Total # of Minutes Spent Total Time Spent with Patient: Total time spent is greater than 50% in coordination of care (as documented) at patient's floor/unit and/or counseling patient: Coding Level of Care Code 21306 Subseq Hosp Care Lvl 3 Diagnoses Fever R50.9 Tachycardia R00.0 Drug reaction T50.905A Syncope R55 Pancytopenia D61.818 Chemotherapy adverse reaction T45.1X5A Waldenstrom macroglobulinemia C88.0 Gout M10.9 Anxiety disorder F41.9 Asthma J45.909
[2021-05-03] MEDS ORDERED: LEVALBUTEROL HCL 0.63 MG/3 ML NEB NEB PRN (19:29)
[2021-05-03] MEDS: ARTIFICIAL TEARS OP OINT 3.5 GM TUBE OP SCH (21:21)
[2021-05-03] MEDS: ADVANCED PROBIOTIC 1250 MG CAPSULE PO SCH (21:22)
[2021-05-03] MEDS: MONTELUKAST SODIUM 10 MG TABLET PO SCH (21:23)
[2021-05-04] MEDS: ACETAMINOPHEN 325 MG TAB PO PRN (03:41)
[2021-05-04] MEDS: LORazepam 0.5 MG TAB PO PRN (03:42)
[2021-05-04] MEDS ORDERED: VANCOMYCIN HCL 1,250 MG in SODIUM CHLORIDE 0.9% 250 ML IV SCH (06:00)
[2021-05-04 08:37] LABS: Hematocrit (blood only) 29.9 % (37-47); Hemoglobin 9.6 g/dL (12.0-16.0); Mean Corpuscular Hemoglobin 31.5 pg (25-34); Mean Corpuscular Hgb Conc 32.1 g/dL (32-36); Mean Platelet Volume 9.3 fL (7.4-10.4); Nucleated RBC # (auto) 0.05 K/uL (0-0); Nucleated RBC % (auto) 0.8 %; Platelet Count 56 K/uL (130-400); RDW Coefficient of Variation 20.8 % (11.5-14.5); RDW Standard Deviation 71.7 fL (36.4-46.3); Red Blood Count 3.05 M/uL (4.2-5.4); White Blood Count 5.42 K/uL (4.8-10.8)
[2021-05-04 08:42] LABS: BUN Creatinine Ratio 28.1 (10-20); Calcium 8.6 mg/dl (8.5-10.1); Creatinine Clr Calc Pharmacy 65.2 ml/min; Est GFR (African American) 82.2 ml/min; Est GFR (Non-African American) 70.9 ml/min; Potassium 3.6 mmol/L (3.5-5.1)
[2021-05-04] MEDS: allopurinoL 300 MG TAB PO SCH (08:44)
[2021-05-04] MEDS: LORATADINE 10 MG TAB PO SCH (08:44)
[2021-05-04] MEDS: LIDOCAINE 5% 1 PATCH TD SCH (08:44)
[2021-05-04] MEDS: CALCIUM 600MG + VIT D 400 IU TAB PO SCH (08:44)
[2021-05-04] MEDS: CHOLECALCIFEROL 1,000 UNITS 25 MCG TAB PO SCH (08:44)
[2021-05-04] MEDS: ASPIRIN 81 MG ECTAB PO SCH (08:44)
[2021-05-04 08:53] LABS: Anisocytosis Present; Basophils # (auto) 0.01 K/uL (0-0.2); Basophils % (auto) 0.2 %; Eosinophils # (auto) 0.21 K/uL (0-0.5); Eosinophils % (auto) 3.9 %; Immature Granulocytes # (auto) 0.03 K/uL (0.00-0.02); Immature Granulocytes % (auto) 0.6 %; Lymphocytes # (auto) 0.24 K/uL (1.2-3.4); Lymphocytes % (auto) 4.4 %; Monocytes # (auto) 0.15 K/uL (0.11-0.59); Monocytes % (auto) 2.8 %; Neutrophils # (auto) 4.78 K/uL (1.4-6.5); Neutrophils % (auto) 88.1 %; Polychromasia 1+
--- NOTE | 2021-05-04 11:54 | Communication Note ---
Date of Service: May 04, 2021 Unable to see patient for psychiatry consult as she was discharged prior to being seen. She was seen by psychiatric liason's during her hospitalization and found these interactions helpful and declined offers for additional outpatient support.
--- NOTE | 2021-05-04 17:29 | Discharge Summary ---
Date of Service May 04, 2021 Admission HPI Per Admitting Provider The patient is a 65-year-old female having completed her first treatment of chemotherapy 1 week ago for [place] macroglobulinemia, reactive airway disease, hypertension, herniated cervical disc without myelopathy, fatty liver, anxiety, allergic rhinitis, B12 deficiency, vitamin D deficiency, anxiety, second endometrium and diverticulosis. Patient presents with symptoms as noted above. She has no specific symptoms otherwise as far as respiratory, GI, urinary, skin or other. Principal Diagnosis 1. Feverlikely multifactorial 2. Immune response (due to Covid booster, flu vaccine, and first [id number] round of chemotherapy) 3. Atelectasis 4. Anxiety 5. Pancytopenia- d/t waldenstrom macroglobulinemia 6. anemia- s/p transfusion 2 units packed cells. 7. Syncope- orthostatic which resolved following transfusion Discharge Exam General: Resting comfortably in her hospital bed. She does not appear ill or toxic. Appears brighter and much better compared to yesterday HEENT: Head is AT/NC buccal mucosa is moist and pink Neck: No JVD. Negative hepatojugular reflex Cardiac: RRR without M/G/R Lungs: Breathing comfortably on ambient air. No accessory muscle use. No wheezes, rales or rhonchi Abdomen: Normoactive X4. Soft and nontender in all quadrants. Extremities: No peripheral clubbing cyanosis or edema Neuro: A&O X4 cranial nerves II through XII are grossly intact no focal neuro deficits Skin: No obvious skin lesions or rashes Psych: Flat affect Discharge Data Allergies Allergy/AdvReac Type Severity Reaction Status Date / Time clindamycin Allergy Severe Rash Verified 04/30/21 23:32 cobalt chloride Allergy Unknown Unknown Verified 04/30/21 23:32 epoxy resin Allergy Unknown Allergy Verified 04/30/21 23:32 testing Gold Salts Allergy Unknown Itching Verified 04/30/21 23:32 levofloxacin Allergy Unknown Unknown Verified 04/30/21 23:32 Sulfa (Sulfonamide Allergy Unknown Rash Verified 04/30/21 23:32 Antibiotics) Thiuram Analogues Allergy Unknown Allergy Verified 04/30/21 23:32 testing amoxicillin AdvReac Unknown Diarrhea Verified 04/30/21 23:32 VITAMIN B12 Allergy Unknown Allergy Uncoded 04/30/21 23:32 testing Albuterol AERS AdvReac Unknown Headache Uncoded 04/30/21 23:32 Consultations 05/01/21 01:25 ED Decision to Admit Stat Ordered Studies 05/02/21 08:20 US carotid doppler BI Routine IMPRESSION: No hemodynamically significant stenosis seen within the carotid arteries. Echocardiogram: LV function hyperdynamic (65 to 70%). Grade 1 diastolic dysfunction. No significant valvular disease. 05/02/21 08:54 CT abd pelvis oral and IV con Urgent IMPRESSION: 1. No acute abnormality below the diaphragm. 2. Hiatal hernia. 3. Hepatic steatosis. 4. Diverticulosis without evidence of diverticulitis. CT angio chest PE protocol Stat IMPRESSION: 1. Enlarged right greater than left axillary lymph nodes, of uncertain etiology. Correlation for infectious, inflammatory, or metastatic process. 2. No evidence of pulmonary embolus. 3. Cardiomegaly. Hospital Course (1) Fever: Fever without obvious source of infection UA: Not grossly infected Covid: Negative CXR: No acute cardiopulmonary process No obvious skin lesions or rashes 05/02: mild tachycardia, hypotensive episode with syncope, and mild hypoxemia: CTA done showing no evidence of PE but atelectatic changes CT of the abdomen and pelvis shows no acute intra-abdominal process Biofire ordered and pending Blood cultures pending. 1/4 tubes with GPC clusters. Given 3 other tubes showing NGTD-- suspect that this to be a contaminated specimen. Repeat blood cultures drawn and showing no growth to date. 1/8 tubes total showing gram-positive clustersthis is presumed a contaminated specimen Urine culture showing no growth Procalcitonin normal: 0.42. CRP/ESR ordered and pending-- both slightly elevated but this could be from her cancer No obvious source of infection seen fever related to immune response given recent Covid booster, then flu vaccine, then 2 rounds of chemotherapy? and atelectasis? Initially started on vancomycin/aztreonam but following 1 dose of each, developed a rash. Antibiotic therapy subsequently held/stopped to allow a potential underlying infection to present itself which it has yet to do NO ANTIBIOTICS GIVEN and fever abated with addition of incentive spirometry and neb treatments I have consulted with Dr. Johnathan Rosado (patient's established oncologist) who I updated upon D/C (2) Hypoxemia: -On 05/02 found to be hypoxic at 89% on room air -CTA of the chest done showing no evidence of PE but did show atelectatic changes -Started on incentive spirometry and nebulized treatments -Hypoxemia resolved -Atelectasis thought to be contributing to her low-grade fever spikes (3) Tachycardia: Mild and seems to be anxiety driven rather than infection driven Again no obvious S/S of infection Procalcitonin negative CTA negative for PE May even be related to the fact that her prednisone was increased to twice a day. Patient takes methylprednisolone 4 mg daily but this was increased for mild steroid challenge given the fever. Back to usual dose now (4) Drug reaction: Uncertain if this was from the aztreonam or vancomycin as happened shortly after infusion of both. Resolved with Pepcid/Benadryl Hold off on any antibiotic therapy for now as outlined above (5) Syncope: Occurred while toileting. Could be vasovagal. Orthostatic blood pressures did did note that she tilted. This could have been driven by the anemia. Following blood, no longer orthostatic CTA : negative for PE TTE: EF 65-70%. No significant valvulopathy carotid dopplers: no significant stenosis Anemia also likely driving this (6) Pancytopenia: Likely secondary to Waldenstrom macroglobulinemia as discussed with Dr. Rosado Oncology reports that her pancytopenia may take a month or more to improve and he knew there was a risk that it could get worse before starting to improve Hemoglobin was 6.9 on the day of admission; however, was not far from baseline7.9 upon arrival. She was not symptomatic and was hemodynamically stable other than some very mild tachycardia Did not give blood initially as she was not overly symptomatic and there was risk of fever from blood This was discussed with Dr. Rosado who agreed Her H/H has been stable in the 7's but has since dropped to 6.7 On 05/04: with excessive fatigue today but otherwise hemodynamically stable She received 2 units of PRBCs. Follow-up hemoglobin improved to 9.6. Orthostasis resolved. (7) Chemotherapy adverse reaction: See above (8) Waldenstrom macroglobulinemia: Undergoing chemotherapy No evidence of hyperviscosity syndrome. Renal function stable. No change in mentation We will need to follow-up with established oncologist (9) Gout: Continue allopurinol (10) Anxiety disorder: Continue Ativan but change to every 6 hours as needed as anxiety seems to be really driving her tachycardia Psychiatric liaison has evaluated the patient and has since signed off (due to home stressors of recently having a sex change and now starting chemotherapy) Initially, patient declining medication but has since requested something. DC with BuSpar (discussed that this is nonhabit-forming)-- PCP can titrate (11) Asthma: Patient had associated atelectasis for which nebulized treatments and incentive spirometry were initiated. I Total Time Total Time Spent Total Time Spent (In Minutes): 60 Discharge Plan Discharge Items Patient Disposition: Home - Self-Care Reason For Visit: CHEMOTHERAPY INDUCED FEVER Discharge Diagnosis: 1. Fever- No sign of infection 2. Immune Response (covid booster, flu shot, 2 nean-aw-nynl rounds chemo) 3. Atelectasis 4. Mild hypoxemia- resolved and 2/2 #3 5. Anxiety 6. anemia/pancytopenia- s/p transfusion Activity: Resume your previous activity Activity Comment: use wheeled walker Non-emergency contact: Primary Care Provider and Oncologist Call non-emergency contact if: you have any medication questions, your symptoms worsen and your temperature is above 101 Follow-up/Referrals: Vladimir Sanders MD [Primary Care Provider] - 05/13/21 11:20 am Diet: Regular Addtl Attending Provider Instructions: - you were hospitalized because of a fever. - you were worked- up thoroughly and there was no sign of infection as the sour ce of your fever - suspected to be related to: -- immune response from covid booster, flu shot and 1st 2 soae-gq-yeki rounds of chemo --atelectasis (as discussed is when your lungs fold in on themselves and can cause low oxygen levels and a fever) - For the atelectasis: make sure to use the incentive spirometer. Also, get out of bed and to the chair to eat your meals to help exercise those lungs - You were given 2 units of blood (transfusion) because of your low blood count (which is likely related to your cancer). Follow up with Dr. Rosado regarding this - You have been started on BuSpar to help with your anxiety. This can be increased by your PCP if needed - follow up with PCP and Dr. Rosado - return to the ED for new or worsening symptoms Pending Studies at Discharge: Yes Studies:: final blood culture report Stand-Alone Forms: My [facility] Medications and DC Order Prescriptions: New buspirone 5 mg tablet 5 mg PO BID Qty: 60 RF: 0 (DME) Anna Sullivan Misc See Rx Instructions .Route Qty: 1 RF: 0 Continued montelukast 10 mg tablet 10 mg PO HS Qty: 90 RF: 3 lorazepam 0.5 mg tablet 0.5 mg PO DAILY PRN (Reason: Anxiety) Qty: 30 RF: 0 olopatadine [Patanase] 0.6 % spray,non-aerosol 1 spray intranasal BID Qty: 30.5 RF: 11 cholecalciferol (vitamin D3) 50 mcg (2,000 unit) capsule 50 mcg PO DAILY RF: 0 aspirin 81 mg tablet,delayed release (DR/EC) 81 mg PO QAM RF: 0 Probiotic 3 billion cell capsule 3,000 mmu cells PO QPM RF: 0 levalbuterol tartrate 45 mcg/actuation HFA aerosol inhaler 2 puff INHALATION Q6H PRN (Reason: Shortness Of Breath Or Wheezing) Qty: 15 RF: 6 ondansetron HCl 8 mg tablet 8 mg PO TID PRN (Reason: Nausea) RF: 0 allopurinol 300 mg tablet 300 mg PO DAILY RF: 0 senna 8.6 mg Capsule 8.6 mg PO DAILY PRN (Reason: Constipation) RF: 0 methylprednisolone 4 mg tablet 4 mg PO .DAILY/UD RF: 0 loratadine [Claritin] 10 mg Tablet 10 mg PO QAM RF: 0 Calcium 600 + D(3) 600 mg calcium- 200 unit Capsule 1 cap PO BID RF: 0 Restore Eye Oint Otc 1 dose ophthalmic (eye) HS RF: 0 ibuprofen 200 mg Tablet 400 mg PO Q6H PRN (Reason: Pain) RF: 0 Discontinued azithromycin 250 mg tablet 250 mg PO .DAILY/UD RF: 0 Discharge Orders: Discharge Order (Routine); Ordered 05/04/21 Ordered By: Ariadna Senior Admission Data Admit Date/Time: 05/01/21 01:37 Attending Provider: Fish Ibarra Admit Provider: Mello Qureshi Primary Care Provider: Vladimir Sanders V. Other Providers: Fish Ibarra ; Marnie Solis ; Breanna Groves ; Saritha Craig ; Barney Ozuna Other Interventions: Discharge Summary Assessment (RN) Last Done: 05/04/21 10:26 Supervising Physician Co-Signing Physician Notes I supervised Ariadna Senior PA-C on the care of this patient. I interviewed and examined the patient independently of her. The plan is as written in her note except for any following changes/exceptions: None Patient doing well today. She has not had fever for > 48 hours. Cultures negative. Likely combination of chemo, cancer, vaccines. Ready for discharge. Coding Level of Care Code D/C DAY MANAGEMENT >30 MINS Diagnoses Fever R50.9 Tachycardia R00.0 Drug reaction T50.905A Syncope R55 Pancytopenia D61.818 Chemotherapy adverse reaction T45.1X5A Waldenstrom macroglobulinemia C88.0 Gout M10.9 Anxiety disorder F41.9 Asthma J45.909 Hypoxemia R09.02
[2021-05-05 17:11] LABS: Babesia microti DNA Not Detected (Not Detected)
== END 2021-05-04 11:54 | disposition home or self-care (01) | DRG 864 ==
LOC: ED 21:17 → SUATTDRO 05-01 01:37 → EDINP 05-01 01:37 → 2W 05-01 06:20
DX: J98.11 Atelectasis; R00.0 Tachycardia, unspecified; T50.B95A Adverse effect of other viral vaccines, initial encounter; M10.9 Gout, unspecified; R50.2 Drug induced fever; F41.9 Anxiety disorder, unspecified; J45.909 Unspecified asthma, uncomplicated; C88.0 Waldenstrom macroglobulinemia; D61.818 Other pancytopenia; Y92.009 Unspecified place in unspecified non-institutional (private) residence as the place of occurrence of the external cause; Z88.8 Allergy status to other drugs, medicaments and biological substances; I95.89 Other hypotension; Z88.1 Allergy status to other antibiotic agents; R09.02 Hypoxemia; Z79.82 Long term (current) use of aspirin; T45.1X5A Adverse effect of antineoplastic and immunosuppressive drugs, initial encounter; Z88.2 Allergy status to sulfonamides; Z83.3 Family history of diabetes mellitus